=== PATIENT | male | born 1970 ===

== ENCOUNTER 2023-02-28 08:48 | Outpatient (REF) | payer MEDICAID, SELFPAY ==
[2023-02-28 11:52] LABS: Estimated Average Glucose 97 mg/dL
[2023-02-28 12:05] LABS: Alanine Aminotransferase 23 U/L (0-40); Albumin Level 4.3 g/dL (3.5-5.0); Alkaline Phosphatase 69 U/L (39-117); Anion Gap 11 (12-20); Aspartate Amino Transferase 20 U/L (5-37); Bilirubin Total 0.7 mg/dL (0.0-1.0); Blood Urea Nitrogen 14 mg/dL (9-16); Calcium 9.4 mg/dL (8.4-10.2); Carbon Dioxide 28 mmol/L (22-29); Chloride 107 mmol/L (96-108); Cholesterol 235 mg/dL; Estimated Glomerular Filt Rate > 60; Glucose Random 94 mg/dL (60-115); HDL Cholesterol 58 mg/dL; LDL Cholesterol Calculated 157 mg/dl; Potassium 3.9 mmol/L (3.3-5.1); Sodium 142 mmol/L (135-145); Total Protein 7.4 g/dL (6.5-8.0); Triglycerides 104 mg/dL
[2023-02-28 12:09] LABS: Syphilis Screen Nonreactive (Nonreactive)
[2023-02-28 12:11] LABS: ~HepC Num1 0.12 S/CO (0.00-0.79); ~Hepatitis C Antibody Nonreactive (Nonreactive)
[2023-02-28 12:17] LABS: HBS Num1 0.08 mIU/mL (0-7.99); HBsAGNum1 0.34 S/CO (0.00-0.99); HIV AB/AG Nonreactive (Nonreactive); HIV Num 1 0.05 S/CO (0.00-0.99); Hepatitis B Core Antibody Nonreactive (Nonreactive); Hepatitis B Surface Antigen Negative (Negative); ~Hepatitis B Surface Antibody NONREACTIVE (Nonreactive)
== END 2023-02-28 08:49 | disposition home or self-care (01) ==
LOC: HO.HHCL 08:48
PROVIDERS: Visit Provider Nurse Practitioner Primary Care
DX: Z00.00 Encounter for general adult medical examination without abnormal findings (principal); Z11.4 Encounter for screening for human immunodeficiency virus [HIV]; Z13.220 Encounter for screening for lipoid disorders; Z11.3 Encounter for screening for infections with a predominantly sexual mode of transmission
CPT/HCPCS: 36415; 80053; 80061; 83036; 86704; 86706; 86780; 86803; 87340; 87389

== ENCOUNTER 2023-04-26 13:32 | Outpatient (AMB) | payer MEDICAID, SELFPAY ==
--- NOTE | 2023-04-26 13:41 | MHC.OFFVIS ---
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 States his finger is locking for the last 4-5 months. States its has worsen especially when its cold. He is having pain in his ring finger MCP. He is also having numbness and tingling in his left hand for the last 3-4 yrs. No EMG done. States he wears a brace as needed to help with his discomfort. Denies prior treatment or bracing. 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 His chief complaint is of left ring finger locking and catching. He also complains of numbness and tingling in both hands and he also complains of pain in the MCP joint of the left thumb but does not think he gets locking and catching. 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 [place] Physical Exam Vital Signs: BMI result Body Mass Index 25.0 Const General: cooperative, healthy appearing and no acute distress Orientation/consciousness: oriented to person and oriented to place HEENT Head: Yes normocephalic and Yes atraumatic Eyes EOM: EOMs intact bilaterally Resp Effort & Inspection: normal respiratory effort and able to speak in complete sentences Cardio Jugular venous distension: no JVD Skin General skin exam: turgor normal Rashes: no rashes Neuro General: oriented to person and oriented to place Extrem Other: Evaluation of left Upper Extremity: Neuro: Median, ulnar, radial nerves motor and sensory grossly intact. Vascular: Cap refill brisk. ROM: Can bring fingers closed to a fist and back out to extension. He has visible and palpable locking and catching of the left ring finger, with tenderness over the A1 kimberly. He has some mild enlargement of the left thumb MCP joint. The MCP joint is mildly tender to palpation, and the radial and ulnar collateral ligaments appear to be stable. He is not particularly tender over the left thumb A1 kimberly, and I do not see any locking or catching of the left thumb today. Skin: No lacerations or abrasions. General: No eccymosis. No erythema or evidence of infection. Radiographs: None available today Psych Appearance: grossly normal Affect: normal affect Attitude: cooperative Assessment & Plan Assessment & Plan (1) Trigger finger, left ring finger: Code(s): M65.342 - Trigger finger, left ring finger (2) Numbness and tingling in both hands: Code(s): R20.0 - Anesthesia of skin; R20.2 - Paresthesia of skin (3) Pain of left thumb: Code(s): M79.645 - Pain in left finger(s) Plan Assessment and plan: 1. Left ring finger trigger finger I educated him about this condition We discussed operative and non operative treatment options and I am recommending surgery. The risks and benefits of operative treatment were discussed with the patient and the patient wishes to proceed with surgery. These risks include, but are not limited to risk of damage to blood vessels, nerves, tendons, infection, recurrence, incomplete relief of preoperative symptoms, persistent pain, possible need for further surgery and the risks associated with regional blocks and anesthesia. The plan is to take the patient to the operating room sometime in the next few weeks for the following procedures: 1. Left ring finger trigger kimberly release 2. [ ] All of the preoperative paperwork including the consent was filled out today. All the patient's questions were answered. 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 2. Numbness and tingling in both hands I have ordered a nerve conduction study He will follow-up with me after that study, likely at the follow-up for his left thumb pain. 3. Left thumb MCP joint pain without evidence of instability. We will work this up at a later date, and will need pre clinic radiographs three views of the left hand with attention to the thumb. Orders: Orders NE nerve conduction velocity Today R20.0 - Anesthesia of skin, R20.2 - Paresthesia of skin Coding Level of Care Code New Pt Level 4 (99998) Diagnoses Trigger finger, left ring finger M65.342 Numbness and tingling in both hands R20.0; R20.2 Pain of left thumb M79.645
[2023-04-26 13:44] VITALS: BMI 25.0
== END 2023-04-26 14:59 | disposition home or self-care (01) ==
PROVIDERS: Visit Provider Orthopaedic Surgery
DX: M65.342 Trigger finger, left ring finger (principal); R20.0 Anesthesia of skin; R20.2 Paresthesia of skin; M79.645 Pain in left finger(s)
CPT/HCPCS: 99204

== ENCOUNTER → 2023-04-26 13:32 | Outpatient (BNVA) | payer MEDICAID, SELFPAY | PROVIDERS: Visit Provider Orthopaedic Surgery ==

== ENCOUNTER 2023-05-13 12:21 | Outpatient (REF) | payer MEDICAID, SELFPAY | END 2023-05-13 12:22 | disposition home or self-care (01) | LOC: HO.NEURO 12:21 | PROVIDERS: Visit Provider Orthopaedic Surgery | DX: R20.0 Anesthesia of skin (principal); R20.2 Paresthesia of skin | CPT/HCPCS: 95886; 95911 ==

== ENCOUNTER → 2023-05-13 12:24 | Outpatient (BNV) | payer MEDICAID, SELFPAY | PROVIDERS: Visit Provider Physical Medicine & Rehabilitation | DX: G56.23 Lesion of ulnar nerve, bilateral upper limbs (principal) | CPT/HCPCS: 95886; 95911 ==

== ENCOUNTER 2023-06-06 06:47 | Day surgery (SDC) | payer MEDICAID, SELFPAY ==
[2023-06-06 07:18] VITALS: BMI 25.8
--- NOTE | 2023-06-06 08:03 | MHC.SHP ---
Pre-Procedural Eval Section A Date of Service: 06/06/23 The patient is an INPATIENT: No Changes since office visit: No Cold of Flu in the past 2 weeks, No New Medical Problems, No Changes in Medication and No Patient answered all questions The History & Physical has been completed within 30 days and I have reviewed it.: Yes Section B Chief Complaint: Trigger finger, left ring finger Allergies: Allergies Allergy/AdvReac Type Severity Reaction Status Date / Time No Known Allergies Allergy Verified 06/06/23 07:19 [No Known Allergies*] Plan I have reviewed the history and physical and performed a pertinent physical examination on my patient. No changes have occurred unless specified. Time Spent With Patient Time: Total time managing care of this patient today ____ minutes.
--- NOTE | 2023-06-06 08:03 | W.PM.OPN ---
Operative Note Operative Note Date of Service: 06/06/23 Narrative: Operative Note Preop diagnosis: 1. Left ring finger Trigger finger Postop diagnosis: Same Procedure: 1. Left ring finger A1 kimberly release Surgeon: Nila Mchugh MD Anesthesia: local block using 1% lidocaine with epinephrine Findings: No locking or catching after A1 kimberly release EBL: Less than 5 mL Tourniquet time: None Specimens: None Complications: None Disposition: Brought to recovery room in stable condition Plan: Follow-up for 10-14 days for wound check and suture removal Indications: The patient is 52 years old, with a left ring finger trigger finger that has been unresponsive to nonoperative management. The risks and benefits of operative treatment including but not limited to risk of damage to blood vessels, nerves, tendons, infection, persistent pain, persistent symptoms, recurrence or possible need for additional surgery were discussed with the patient and the patient wishes to proceed with surgery. Procedure: Once consent was obtained a local block was performed in the preop area using a combination of 1% lidocaine with epinephrine. The patient was then brought back to the operating suite and placed on the operative table in supine position. The left upper extremity was prepped and draped in a standard surgical fashion. Once assured that we had a good block, a 1.5 cm oblique incision was made centered over the A1 kimberly of the left ring finger . The incision was made through the skin to the subcutaneous tissues using a #15 blade. Careful dissection was made down to the level of the A1 kimberly using tenotomy scissors, with care being taken to protect the nearby neurovascular structures. A longitudinal incision was made in the A1 kimberly 1st using a #15 blade, then using tenotomy scissors under direct visualization. The A1 kimberly was noted to be thickened. Following our A1 kimberly release, we no longer saw any locking or catching of the digit with flexion and extension. Once satisfied with our A1 kimberly release the wound was copiously irrigated with normal saline and hemostasis was obtained with a brief period of local pressure. The skin edges were reapproximated with some 5.0 nylon suture material and a sterile dressing was applied. The patient appears to have tolerated the procedure well and with no complications. All digits were well vascularized at the conclusion of the case.
== END 2023-06-06 09:27 ==
LOC: HO.SSS 06:48
PROVIDERS: Visit Provider Orthopaedic Surgery
PROC: (CPT 26055; principal; 2023-06-06 08:20)
DX: M65.342 Trigger finger, left ring finger (principal); R20.0 Anesthesia of skin; R20.2 Paresthesia of skin; M79.645 Pain in left finger(s)
CPT/HCPCS: 26055; J0171

== ENCOUNTER → 2023-06-06 06:47 | Outpatient (BNV) | payer MEDICAID, SELFPAY | PROVIDERS: Visit Provider Orthopaedic Surgery | DX: M65.342 Trigger finger, left ring finger (principal) | CPT/HCPCS: 26055 ==

== ENCOUNTER 2023-06-22 11:04 | Outpatient (REF) | payer MEDICAID, SELFPAY | END 2023-06-22 11:05 | disposition home or self-care (01) | LOC: HO.HOSX 11:04 | PROVIDERS: Visit Provider Orthopaedic Surgery | DX: G56.21 Lesion of ulnar nerve, right upper limb (principal); M65.342 Trigger finger, left ring finger; R20.0 Anesthesia of skin; R20.2 Paresthesia of skin | CPT/HCPCS: 99212 ==

== ENCOUNTER 2023-06-22 12:09 | Outpatient (AMB) | payer MEDICAID, SELFPAY ==
[2023-06-22 12:31] VITALS: BMI 25.8
--- NOTE | 2023-06-22 12:31 | MHC.OFFVIS ---
Intake Vital Signs 06/22/23 12:31 06/22/23 13:05 Height 5 ft 5 in Weight 155 lb BMI 25.8 25.8 Intake Visit Reasons: PO LT RF Trigger 06/06/2023 Intake Note: Trip 53 yr old male presents today for his p/o visit for his left ring finger DOS 06/06/23. States his finger no longer triggering, however he is having trouble straightening it out. Allergies No Known Allergies [No Known Allergies*] Allergy (Verified 06/22/23 12:55) HPI PO LT RF Trigger 06/06/2023 HPI Details Trip is a 53 year old right hand dominant man who presents S/P left ring finger trigger release, DOS: 06/06/23. He says he is doing well in regards to his trigger finger and no longer has any locking or catching. He does say he is having difficulty and some pain when trying to fully straighten his finger. 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 Sutures removed and Steri-Strips applied He can make a fist and extend all his digits No locking or catching He does have a slight flexion contracture of the ring finger PIP joint that measures perhaps 20 degrees. This is somewhat flexible and with encouragement I was able to get him to get a flat on the table, though he did not like it because it hurt to try to straighten it out. Showed him some exercises and expressed the importance of performing them to avoid a significant flexion contracture. Sensation is intact Cap refill is brisk Psych Appearance: grossly normal Affect: normal affect Attitude: cooperative Assessment & Plan Assessment & Plan (1) Trigger finger, left ring finger: Code(s): M65.342 - Trigger finger, left ring finger (2) Pain of left thumb: Code(s): M79.645 - Pain in left finger(s) (3) Numbness and tingling in both hands: Code(s): R20.0 - Anesthesia of skin; R20.2 - Paresthesia of skin Plan Assessment and plan: 1. Left ring finger trigger finger, S/P release DOS: 06/06/23 The patient appears to be doing well post-operatively I educated him about the post-operative course I explained the signs and symptoms of infection, if the patient develops any new or worsening erythema, drainage, pain, or warmth they should contact the clinic or attend the ED. I discussed activity modifications, he is to lift nothing heavier than a cellphone for the next two weeks He will perform gentle ROM exercises at home, particularly straightening the finger out by placing it flat on the table at least 20 times a day. He should avoid any underwater activities for the next 5 days He should gently massage about the incision site to reduce the risk of hypersensitivity He was given a note restricting him to light duty with a 2lb weight limit for the next 2 weeks. He can return to full duty in 2 weeks. Scribed for Nila Mchugh MD by Julius Chavarria, medical safety director, on 06/22/23 at 1:00 PM, EST. Coding Level of Care Code Global (66157) Diagnoses Trigger finger, left ring finger M65.342 Pain of left thumb M79.645 Numbness and tingling in both hands R20.0; R20.2
--- NOTE | 2023-06-22 13:04 | MHC.OFFVIS ---
Intake Vital Signs 06/22/23 12:31 06/22/23 13:05 Height 5 ft 5 in Weight 155 lb BMI 25.8 25.8 Intake Visit Reasons: PO LT RF Trigger 06/06/2023R Allergies No Known Allergies [No Known Allergies*] Allergy (Verified 06/22/23 12:55) HPI HPI Comments History of Present Illness Details Trip is a 53 year old right hand dominant man who presents to discuss his right thumb pain & for a NCS study review. 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 [place] Review of Systems Const All systems reviewed & are unremarkable except as noted in HPI and below Physical Exam Vital Signs: BMI result Body Mass Index 25.8 Const General: no acute distress and alert Orientation/consciousness: patient oriented x3 Neuro General: patient oriented x3 Extrem Other: Evaluation of Left Upper Extremity: The patient is alert, oriented, and in no acute distress Neuro: Median, Ulnar, Radial nerves motor and sensory intact and sensation is normal to the tips of all digits Vascular: Cap refill brisk ROM: He can bring his thumb, index, middle, and small fingers closed to a fist and back into full extension He has some mild enlargement of the left thumb MCP joint. The MCP joint is mildly tender to palpation, and the radial and ulnar collateral ligaments appear to be stable. He is not particularly tender over the left thumb A1 kimberly, and I do not see any locking or catching of the left thumb today. Nerve Conduction Study: IMPRESSION: 1. This is an abnormal study. 2. There is electrodiagnostic evidence for right ulnar neuropathy, most likely at the elbow. 3. There is no electrodiagnostic evidence for median neuropathy, brachial plexopathy, or cervical radiculopathy. 4. There is no electrodiagnostic evidence for ulnar neuropathy on the left. Thank you for your kind referral. Genesis Sue MD, FANG 05/13/23 Psych Appearance: grossly normal Affect: normal affect Attitude: cooperative Assessment & Plan Assessment & Plan (1) Trigger finger, left ring finger: Code(s): M65.342 - Trigger finger, left ring finger (2) Pain of left thumb: Code(s): M79.645 - Pain in left finger(s) (3) Cubital tunnel syndrome on right: Code(s): G56.21 - Lesion of ulnar nerve, right upper limb (4) Numbness and tingling in both hands: Code(s): R20.0 - Anesthesia of skin; R20.2 - Paresthesia of skin Plan Assessment and plan: 1. Right Cubital tunnel syndrome Symptoms intermittent and occasional I educated him about this condition If his symptoms persist or worsen he can follow up to discuss treatment options Otherwise he will follow up prn 3. Left thumb MCP joint pain without evidence of instability Discussed activity modification, he should limit or avoid any activities which cause him pain, including repetitive motions 4. Left ring finger trigger finger, S/P release DOS: 06/06/23 Scribed for Nila Mchugh MD by Julius Chavarria, biomedical engineering director, on 06/22/23 at 1:00 PM, EST. Coding Diagnoses Trigger finger, left ring finger M65.342 Pain of left thumb M79.645 Cubital tunnel syndrome on right G56.21 Numbness and tingling in both hands R20.0; R20.2
[2023-06-22 13:05] VITALS: BMI 25.8
== END 2023-06-22 13:16 | disposition home or self-care (01) ==
PROVIDERS: Visit Provider Orthopaedic Surgery
DX: M65.342 Trigger finger, left ring finger (principal); M79.645 Pain in left finger(s); R20.0 Anesthesia of skin; R20.2 Paresthesia of skin
CPT/HCPCS: 99024

== ENCOUNTER 2023-06-22 12:38 | Outpatient (AMB) | payer MEDICAID, SELFPAY ==
[2023-06-22 12:49] VITALS: BMI 25.8
--- NOTE | 2023-06-22 12:49 | A.OFFVIS_ITS ---
Intake Vital Signs 06/22/23 12:49 Height 5 ft 5 in Weight 155 lb BMI 25.8 Intake Visit Reasons: New Prob- Lt thumb OA Pain Intake Note: Trip 53 yr old male presents today for a new problem visit for his left thumb pain. States his pain is mainly on his joint. States pain started about 4-5 years ago no injury he can recall. States he feels like is thumb locks. Also has spasms and limited his ROM. He has to massage the area to make his finger feel better. States he had an EMG done. Allergies No Known Allergies [No Known Allergies*] Allergy (Verified 06/22/23 12:55) HPI New Prob- Lt thumb OA Pain HPI Details Trip is a 53 year old right hand dominant man who presents to discuss his left thumb pain & for a NCS study review. He complains of numbness and tingling to the tips of his fingers, primarily the thumb, index and middle fingers of his right hand. He denies any numbness or tingling in the right small finger. He also complains of pain and spasms in the thenar mass aspect of his left thumb. He says this happens periodically and with activities. He denies any locking or catching of his thumb. 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 [place] Review of Systems Const All systems reviewed & are unremarkable except as noted in HPI and below Physical Exam Vital Signs: BMI result Body Mass Index 25.8 Const General: no acute distress and alert Orientation/consciousness: patient oriented x3 Neuro General: patient oriented x3 Extrem Other: Evaluation of Left Upper Extremity: The patient is alert, oriented, and in no acute distress Neuro: Median, Ulnar, Radial nerves motor and sensory intact and sensation is normal to the tips of all digits today in clinic No thenar or intrinsic wasting He reports occasionally getting intermittent numbness in the median nerve distribution. He denies ever having any numbness in the small finger. Vascular: Cap refill brisk ROM: He is not particularly tender over the left thumb A1 kimberly, and I do not see any locking or catching of the left thumb today. No tenderness about the basal joint Negative CMC grind Not particularly tender over the thenar mass today in clinic, but he says this is where he will get spasms and feel pain. He has good active flexion and extension of the thumb and circumduction of the thumb without pain. Nerve Conduction Study: IMPRESSION: 1. This is an abnormal study. 2. There is electrodiagnostic evidence for right ulnar neuropathy, most likely at the elbow. 3. There is no electrodiagnostic evidence for median neuropathy, brachial plexopathy, or cervical radiculopathy. 4. There is no electrodiagnostic evidence for ulnar neuropathy on the left. Thank you for your kind referral. Genesis Sue MD, FANG 05/13/23 Psych Appearance: grossly normal Affect: normal affect Attitude: cooperative Assessment & Plan Assessment & Plan (1) Cubital tunnel syndrome on right: Code(s): G56.21 - Lesion of ulnar nerve, right upper limb (2) Pain of left thumb: Code(s): M79.645 - Pain in left finger(s) Plan Assessment & Plan: 1. Left thumb pain, in the area of the thenar mass Intermittent and not daily No triggering No pain about the CMC joint I educate him about both of these things and let him know that either one of th kathy things can cause pain in the thenar mass in case he should develop them. He also had no tenderness in the thenar mass today, so we talked about the fact that he could be getting muscle spasms and this area, in which case he needs to be a little bit more mindful about maybe not overdoing repetitive gripping type activities which might cause spasms in his hand. No indications for injections or operative treatment at this time 2. Right Cubital tunnel syndrome Asymptomatic at this time, no problems with numbness in the small and ring fingers. He notes that he occasionally has numbness to the tips of the thumb, index, and middle fingers NCS negative for median neuropathy Follow-up p.r.n. Scribed for iNla Mchugh MD by Julius Chavarria, caregivers non medical, on 06/22/23 at 1:35 PM, EST. Orders: Orders XR hand LT min 3V Today M79.642 - Pain in left hand Coding Level of Care Code Est Pt Level 3 (99565) Diagnoses Cubital tunnel syndrome on right G56.21 Pain of left thumb M79.645
== END 2023-06-22 13:16 | disposition home or self-care (01) ==
PROVIDERS: Visit Provider Orthopaedic Surgery
DX: G56.21 Lesion of ulnar nerve, right upper limb (principal); M79.645 Pain in left finger(s)
CPT/HCPCS: 99213

== ENCOUNTER 2024-06-14 10:33 | Outpatient (REF) | payer MEDICAID, SELFPAY ==
[2024-06-14 12:02] LABS: Alanine Aminotransferase 31 U/L (0-40); Albumin Level 4.3 g/dL (3.5-5.0); Alkaline Phosphatase 72 U/L (39-117); Anion Gap 12 (12-20); Aspartate Amino Transferase 26 U/L (5-37); Bilirubin Total 0.5 mg/dL (0.0-1.0); Blood Urea Nitrogen 11 mg/dL (9-16); Calcium 9.5 mg/dL (8.4-10.2); Carbon Dioxide 27 mmol/L (22-29); Chloride 105 mmol/L (96-108); Cholesterol 230 mg/dL (<200); Estimated Glomerular Filt Rate > 60; Glucose Random 104 mg/dL (60-115); HDL Cholesterol 64 mg/dL (>40); LDL Cholesterol Calculated 152 mg/dL (<100); Potassium 4.2 mmol/L (3.3-5.1); Sodium 140 mmol/L (135-145); Total Protein 7.3 g/dL (6.5-8.0); Triglycerides 74 mg/dL (<150)
[2024-06-14 12:20] LABS: TSH reflex Free T4 0.35 uIU/mL (0.32-4.0)
== END 2024-06-14 10:34 | disposition home or self-care (01) ==
LOC: HO.HHCL 10:33
PROVIDERS: Visit Provider Nurse Practitioner Primary Care
DX: Z00.00 Encounter for general adult medical examination without abnormal findings (principal); F41.1 Generalized anxiety disorder
CPT/HCPCS: 36415; 80053; 80061; 84443

== ENCOUNTER 2024-07-11 14:24 | Outpatient (AMB) | payer MEDICAID, SELFPAY ==
[2024-07-11 14:38] VITALS: BMI 23.4
--- NOTE | 2024-07-11 14:38 | MHC.OFFVIS ---
Vital Signs 07/11/24 14:38 Height 5 ft 6 in Weight 145 lb BMI 23.4 Intake Visit Reasons: OV: B/L hand pain, EMG done on 05/13/23 Intake Note: Trip is a 54 year old right hand dominant male who presents today for a follow up visit of his bilateral hand pain, left is worse. EMG done on 05/15/2023. 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 Has tried braces. Hx of Left ring finger A1 kimberly release DOS: 06/06/2023 w/ Dr Mchugh. Party Plan Dealer Required: Yes Party Plan Dealer Language: Hospital Carrier Services: Party Plan Dealer Present Party Plan Dealer Name: Darrel ([id number]) Allergies No Known Allergies [No Known Allergies*] Allergy (Verified 07/11/24 14:42) HPI HPI OV: B/L hand pain, EMG done on 05/13/23: Details: Patient is a 54-year-old male who presents for evaluation of bilateral hand pain, numbness, tingling, with EMG previously performed on 05/13/2023. Patient states that his previous EMG only showed cubital tunnel on the right, but the patient states that he is experiencing bilateral hand pain, numbness, and tingling in all digits of the left hand and the median nerve distribution of the right hand. Patient states he is interested in getting a repeat EMG. Patient states that this pain frequently keeps him from sleeping, and is much worse at night. Patient states that his numbness is almost all the time, daily, and worse at night. No other acute complaints or concerns at this time. 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 He denies ever having any numbness in the small finger. Vascular: Cap refill brisk ROM: Patient is able to flex and extend all digits of bilateral hands fully, but reports some slight discomfort when doing so in all joints of bilateral fingers Nerve Conduction Study: IMPRESSION: 1. This is an abnormal study. 2. There is electrodiagnostic evidence for right ulnar neuropathy, most likely at the elbow. 3. There is no electrodiagnostic evidence for median neuropathy, brachial plexopathy, or cervical radiculopathy. 4. There is no electrodiagnostic evidence for ulnar neuropathy on the left. Thank you for your kind referral. Genesis Sue MD, FANG 05/13/23 Psych Appearance: grossly normal Affect: normal affect Attitude: cooperative Assessment & Plan Assessment & Plan (1) Bilateral hand pain: Code(s): M79.641 - Pain in right hand; M79.642 - Pain in left hand Category: Medical (2) Numbness and tingling in both hands: Code(s): R20.0 - Anesthesia of skin; R20.2 - Paresthesia of skin Category: Medical (3) Cubital tunnel syndrome on right: Code(s): G56.21 - Lesion of ulnar nerve, right upper limb Category: Medical Plan 1. Cubital tunnel syndrome, right, asymptomatic 2. Numbness and tingling bilateral hands with the EMG negative for everything other than cubital tunnel syndrome on the right At this time, patient was referred for repeat EMG and nerve conduction study to assess the health of the nerves of bilateral upper extremities Patient will follow-up after EMG and nerve conduction study for results review and discussion of further treatment options if indicated Patient is also provided with bilateral Velcro wrist splints to be worn at night to see if this will help his nighttime symptoms Patient was amenable to this plan 3. Pain and stiffness of bilateral hands Patient reports previous diagnosis of arthritis Patient was referred to occupational therapy for range of motion and strengthening of bilateral hands Patient was amenable to this plan Patient will follow-up after EMG and nerve conduction study for results review, sooner any acute concerns Orders: Orders NE electromyogram (EMG) 07/11/24 R20.0 - Anesthesia of skin, R20.2 - Paresthesia of skin NE nerve conduction velocity 07/11/24 R20.0 - Anesthesia of skin, R20.2 - Paresthesia of skin OT Evaluation and Treatment 07/11/24 M79.641 - Pain in right hand, M79.642 - Pain in left hand Coding Level of Care Code Est Pt Level 3 (46862) Diagnoses Bilateral hand pain M79.641; M79.642 Numbness and tingling in both hands R20.0; R20.2 Cubital tunnel syndrome on right G56.21
== END 2024-07-11 15:07 | disposition home or self-care (01) ==
DX: M79.641 Pain in right hand (principal); M79.642 Pain in left hand; R20.0 Anesthesia of skin; R20.2 Paresthesia of skin; G56.21 Lesion of ulnar nerve, right upper limb
CPT/HCPCS: 99213

== ENCOUNTER → 2024-07-11 14:24 | Outpatient (BNVA) | payer MEDICAID, SELFPAY | DX: M79.641 Pain in right hand (principal); M79.642 Pain in left hand; R20.0 Anesthesia of skin; R20.2 Paresthesia of skin; G56.21 Lesion of ulnar nerve, right upper limb | CPT/HCPCS: 99212 ==

== ENCOUNTER 2024-08-17 13:19 | Outpatient (REF) | payer MEDICAID, SELFPAY ==
--- NOTE | 2024-08-17 13:22 | EMG_ITS ---
Chief complaint: Bilateral hand pain Comparison: EMG done by nc 05/13/2023 Reason for referral: Evaluate for Carpal Tunnel Syndrome or ulnar neuropathy Referred by: Sebastian OKEEFE Procedure done: Bilateral upper extremities NCS/EMG Precautions and/or limitations: None The limb temperature was monitored continuously and remained between 32-36 degrees C during the performance of the NCS. Ulnar motor NCS was performed with moderate elbow flexion between 70-90 degrees, with across-elbow distance of 10 cm. Nerve Conduction Studies Anti Sensory Summary Table ?Stim Site NR Onset (ms) Norm Onset (ms) Peak (ms) Norm Peak (ms) O-P Amp (?V) Norm O-P Amp Site1 Site2 Delta-0 (ms) Dist (cm) Rojelio (m/s) Norm Rojelio (m/s) Left Median Anti Sensory (2nd Digit) Wrist ? 2.6 3.2 <3.6 29.7 >10 Wrist 2nd Digit 2.6 14.0 54 Right Median Anti Sensory (2nd Digit) Wrist ? 2.4 3.1 <3.6 28.6 >10 Wrist 2nd Digit 2.4 14.0 58 Right Radial Anti Sensory (Thumb) Forearm ? 1.6 2.3 <3.1 28.7 Forearm Thumb 1.6 0.0 Left Ulnar Anti Sensory (5th Digit) Wrist ? 0.5 3.0 <3.7 17.2 >15.0 Wrist 5th Digit 0.5 14.0 280 Right Ulnar Anti Sensory (5th Digit) Wrist ? 2.5 3.1 <3.7 19.5 >15.0 Wrist 5th Digit 2.5 14.0 56 Motor Summary Table ?Stim Site NR Onset (ms) Norm Onset (ms) O-P Amp (mV) Norm O-P Amp iAmp (mV) Amp (1st) (%) Site1 Site2 Delta-0 (ms) Dist (cm) Rojelio (m/s) Norm Rojelio (m/s) Left Median Motor (Abd Poll Brev) Wrist ? 3.2 <3.9 6.5 >4.5 7.3 100.0 Elbow Wrist 4.1 21.5 52 >45 Elbow ? 7.3 5.8 6.6 89.2 Right Median Motor (Abd Poll Brev) Wrist ? 3.4 <3.9 4.6 >4.5 5.7 100.0 Elbow Wrist 3.9 21.5 55 >45 Elbow ? 7.3 4.1 5.5 89.1 Left Ulnar Motor (Abd Dig Minimi) Wrist ? 2.6 <3.0 5.0 >5 6.1 100.0 B Elbow Wrist 3.5 19.0 54 >45 B Elbow ? 6.1 4.3 5.5 86.0 A Elbow B Elbow 1.5 110.0 733 >45 A Elbow ? 7.6 4.9 6.2 98.0 Right Ulnar Motor (Abd Dig Minimi) Wrist ? 2.5 <3.0 6.5 >5 7.8 100.0 B Elbow Wrist 3.4 20.5 60 >45 B Elbow ? 5.9 6.0 7.4 92.3 A Elbow B Elbow 1.3 10.0 77 >45 A Elbow ? 7.2 5.9 7.2 90.8 EMG ?Side Muscle Nerve Root Ins Act Fibs Psw Amp Dur Poly Recrt Int Pat Comment Right 1stDorInt Ulnar C8-T1 Nml Nml Nml Nml Nml 0 Nml Complete Right FlexCarRad Median C6-7 Nml Nml Nml Nml Nml 0 Nml Complete Right Biceps Musculocut C5-6 Nml Nml Nml Nml Nml 0 Nml Complete Right Triceps Radial C6-7-8 Nml Nml Nml Nml Nml 0 Nml Complete Right Deltoid Axillary C5-6 Nml Nml Nml Nml Nml 0 Nml Complete Left 1stDorInt Ulnar C8-T1 Nml Nml Nml Nml Nml 0 Nml Complete Left FlexCarRad Median C6-7 Nml Nml Nml Nml Nml 0 Nml Complete Left Biceps Musculocut C5-6 Nml Nml Nml Nml Nml 0 Nml Complete Left Triceps Radial C6-7-8 Nml Nml Nml Nml Nml 0 Nml Complete Left Deltoid Axillary C5-6 Nml Nml Nml Nml Nml 0 Nml Complete FINDINGS: All motor and sensory nerves tested showed normal latencies, amplitudes and conduction velocities. Concentric needle EMG was performed in selected muscles of the bilateral upper extremities. Study did not reveal signs of electric abnormalities as shown in the table above. IMPRESSION: 1. This is a normal study. 2. There is no electrodiagnostic evidence for median neuropathy, ulnar neuropathy, brachial plexopathy, or cervical radiculopathy. CLINICAL COMMENT: No signs of ulnar neuropathy on today's study. Thank you for your kind referral. Genesis Sue MD, FANG Board Certified, [place] Board [employer] and Rehabilitation (ABPMR) Board Certified, [place] Board of Electrodiagnostic Medicine (ABEM) CODIN [phone] MTDD
== END 2024-08-17 13:20 | disposition home or self-care (01) ==
LOC: HO.NEURO 13:19
PROVIDERS: PCP Nurse Practitioner Primary Care
DX: R20.0 Anesthesia of skin (principal); R20.2 Paresthesia of skin
CPT/HCPCS: 95886; 95911

== ENCOUNTER → 2024-08-17 13:22 | Outpatient (BNV) | payer MEDICAID, SELFPAY | PROVIDERS: PCP Nurse Practitioner Primary Care; Visit Provider Physical Medicine & Rehabilitation | DX: M79.641 Pain in right hand (principal); M79.642 Pain in left hand | CPT/HCPCS: 95886; 95911 ==

== ENCOUNTER 2024-08-21 14:32 | Outpatient (RCR) | payer MEDICAID, SELFPAY ==
--- NOTE | 2024-07-26 15:03 | MHC.OT.EP ---
[address] [phone] Occupational Therapy Plan of Care Patient Name: Trip Kramer Date of Evaluation: 07/26/24 Diagnosis: B/L hand Pain Pain Location: Constant sharp pain/ache in hands Also reports pain in back Pain Score: 9 Pain Scale Used: Numeric (0 - 10) Aggravating Factors: Gripping, heavy use, cold weather Alleviating Factors: Tylenol (no significant relief), some relief w/ warm water Assessment: 54 yo male presents w/ B/L hand pain, reported over several years. 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 He is referred now with bilateral hand pain through digits, into elbow and back at times, with numbness and tingling through the hands and tightness constantly. On assessment today, he reports high resting pain, primarily in left upper back, but high also in both hands through IPs. He has equal sensation (3.61) and gross grasp (60lb), Upper extremity and hand range is grossly normal, tightness noted through hands with hook fist due to pain stiffness and intrinsic tightness. No changes with Tinel's to carpal tunnel, cubital tunnel or Guyon's canal B/L'ly, also (-) Phalen's B/L'ly, pain seems consistent w/ arthritic changes and general overuse of hands through work and daily activities. We will continue OT services to address range, strengthening, modifications and overall pain management techniques. Frequency and Duration: The patient will be seen 2x/wk for 4 weeks Short Term Goals: Ind w/ HEP Ind w/ use of heat modalities for comfort and warm-up Pt to demo good understanding of modifications for gripping to reduce strain Care Home Goals: Pt to demo ease w/ hook fist into full range B/L gross grasp >80lb QuickDASH score <50 pts Treatment Plan: Therapeutic Exercise Therapeutic Activity Home Exercise Program Patient Education Edema Control ADL Training Paraffin Fluidotherapy MHP Joint Mobilization Soft Tissue Mobilization Kinesiotaping Electronically Signed By: Maria Fernanda Zee, OTR/L CHT Please Sign and return to therapist. Thank you once again for your referral.
--- NOTE | 2024-08-23 11:39 | MHC.OT.DC ---
[address] [phone] F: [phone] Occupational Therapy Discharge Note Patient Name: Trip Kramer Provider: Sebastian Wang PA-C Diagnosis: B/L hand Pain Date of Evaluation: 07/26/24 Date of Discharge: 08/23/24 Treatments to Date: 4 Discharge Status: Independent with HEP Insurance Declined Tx Discharge Summary: Trip was referred to OT w/ B/L hand pain due to OA. He has low pain in hands when not working, but as soon as returns to work, has higher pain through hands. Overall good range w/ some intrinsic tightness w/ hook. Ind w/ HEP and has increased ease w/ movement, but no specific gains made with pain relief through therapy. He has been educated on joint protection, activity modification and HEP for OA, at this time we will d/c to self management of chronic condition. Electronically Signed By: Maria Fernanda Zee, OTR/L CHT Reviewed/agree with student documentation: Therapist: Please Sign and return to therapist, thank you for your referral.
== END 2024-08-23 11:40 | disposition home or self-care (01) ==
LOC: HO.OT 14:32
PROVIDERS: PCP Nurse Practitioner Primary Care
DX: M79.641 Pain in right hand (principal); M79.642 Pain in left hand
CPT/HCPCS: 97110; 97140; 97165

== ENCOUNTER → 2024-09-11 20:30 | Outpatient (REF) | payer MEDICAID, SELFPAY ==
--- OUTSIDE RECORDS SUMMARY | 2024-09-11 21:04 | XMS_ITS | Clinical Summary ---
Author Organization [employer] Address [address] [facility] [address] [place] [address] Care Team Providers Care Orientation & Mobility Specialist Name Role Phone Torie Dowling Primary Care Provider [phone] Allergies No known active allergies Medications * This document contains information received from the source organization and may not represent a complete record from that organization. Blood Pressure kitIndications:El evated blood pressure reading without diagnosis of hypertension 1 kit in the morning. 1 kit 3 Active olmesartan (Benicar) 20 MG tabletIndications :Benign essential HTN Take 1 tablet (20 mg) by mouth Once per day. 90 tablet 1 4 Active dextran 70-hypromellose (artificial tears) 0.1-0.3 % ophthalmic solutionIndicatio ns:Dry eyes Administer 1 drop into both eyes if needed in the morning, at noon, and at bedtime for dry eyes. 15 mL 3 4 05/04/20 25 Active QUEtiapine (SEROquel) 50 MG tablet Take 50 mg by mouth at bedtime. 4 Active PARoxetine (Paxil) 30 MG tablet Take 60 mg by mouth Once daily. 4 Active Active Problems Problem Noted Date Diagnosed Date Benign essential HTN 01/27/2024 Screening for colon cancer 11/02/2023 Overview (11/02/2023): Cologuard negative 03/2023 JERRELL (generalized anxiety disorder) 11/02/2023 Assessment & Plan (11/04/2023 2:28 PM EDT): During IBH Consult Trip presenting with excessive worry/anxiety, difficulty controlling worry, restless/keyed up/On edge, easily fatigued, difficulty concentrating/Mind going blank , irritability, muscle tension, and sleep disturbance difficulty falling asleep and palpitations, sweating, sensation of shortness of breath/smothering, Chest pain/discomfort, dizzy/unsteady/light-headed/faint, numbness/tingling, fear of losing control; for a period of 18+ mo, for all symptoms in the context of divorce/separation, illness or family illness, and relationship issues. Trip have been experiencing panic attacks due to dealing with many stressors. Difficulty to manage symptoms. Interpersonal relationship reported as vulnerable due to lack of communication with loved ones. PLAN: (check all that apply) New/Additional Services needed PCP management On-site non-integrated services . Provided number for [facility] for sooner and same-day appointments. Referral for OP individual therapy will be placed. clinician will see patient for a follow-up. 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 Encounters Date Type Department Care Team Description 08/21/2024 Telephone [facility] [address] [place] [address] Jayro Wood [place] October recall 08/03/2024 2:15 PM EST Office Visit [facility] [address] [place] [address] Torie Dowling ANP Apneic episode (Primary Dx); Snoring; Daytime somnolence; Elevated cholesterol; Benign essential HTN 08/03/2024 Travel from Last 3 Months Immunizations Name Administration Dates Next Due Hep B, adult 11/02/2023 Influenza Injectable Quadriv alant Preservative Free IIV4 MDCK 06/15/2023 Influenza, seasonal, injectable, preservative fr ee 04/30/2024 Pfizer Covid-19 Vaccine 12+ 04/30/2024 Tdap 04/29/2020 Zoster, Recombinant 08/18/2023,06/15/2023 Social History Tobacco Use Types Packs/Day Years Used Date Smoking Tobacco: Former Cigarettes Passive Smoke Exposure: Past Smokeless Tobacco: Never Alcohol Use Standard Drinks/Week Comments Yes 0 (1 standard drink = 0.6 oz pur e alcohol) Alcohol Answer Date Recorded How often do you have a drink containing alcohol ? 2 08/03/2024 How many drinks containing a lcohol do you have on a typical day when you are drinking? 2 08/03/2024 Frequency of Binge Drinking Not on file 07/09 Depression Answer Date Recorded Patient Health Questionnaire-9 Score 15 08/03/2024 Patient Health Questionnaire-9 Score 15 08/03/2024 Last PHQ-9: Questionnaire Data Not on file 1 10/04/2023 Housing Stability Answer Date Recorded What is your housing situation today? I have brad salazar 05/16/[address] you li ve. Do you have problems with any of the following? Pests such as bugs, ants, or mice 05/16/2023 Food Insecurity Answer Date Recorded Within the past 12 months, y ou worried that your food would run out before you got money to buy more: Often true 06/06/2023 Within the past 12 months,th e food you bought just didn't last and you didn't have enough money to get more: Often true Transportation Answer Date Recorded In the past 12 months, has l ack of transportation kept you from medical appts, meetings, work or from getting things needed for daily living? No 06/06/2023 Utilities Answer Date Recorded In the past 12 months, has t he electric, gas, oil or water company threatened to shut off services in your home? No 06/06/2023 Depression Answer Date Recorded Patient Health Questionnaire-2 Score 5 08/03/2024 Sex and Gender Information Value Date Recorded Sex Assigned at Male 12/27/2022 4:29 PM EDT Legal Sex Male 4:07 PM EDT Gender Identity Male 12/27/2022 4:29 PM EDT Sexual Orientation Don't know 12/27/2022 4: 29 PM EDT Last Filed Vital Signs Vital Sign Reading Time Taken Comments Blood Pressure 130/88 08/03/2024 3:26 PM EST Pulse 90 08/03/2024 2:27 PM EST Temperature 37.1 ??C (98.8 ??F) 08/03/2024 2:27 PM ES T Respiratory Rate 14 08/03/2024 2:27 PM EST Oxygen Saturation 98% 08/03/2024 2:27 PM EST Inhaled Oxygen Concentration - - Weight 73 kg (161 lb) 08/03/2024 2:27 PM EST Height 165.1 cm (5' 5 ) 04/30/2024 3:44 PM EDT Body Mass Index 26.79 04/30/2024 3:44 PM EDT Plan of Treatment Upcoming Encounters Date Type Department Care Team (Late st Contact Info) Description 11/02/2024 1:30 PM EDT Office Visit [facility] [address], [place] [phone] Torie Dowling, LEENA [address] [place] [address] Health Maintenance Due Date Last Done Comments CT Colonography 1969 FIT DNA/Cologuard 1969 FIT 1969 FOBT 1969 Sigmoidoscopy 1969 Pneumococcal Vaccine: 50+ Years (1 of 1 - PCV) 2019 Hepatitis B Vaccines (2 of 3 - 19+ 3-dose series) 11/30/2023 11/02/2023 SDOH Screening 10/24/2024 10/25/2023 Depression Monitoring (PHQ-9) 02/01/2025 08/03/2024, 08/03/2024 Alcohol/Substance Use Screening 08/03/2025 08/03/2024 Depression Screening 08/03/2025 08/03/2024, 08/03/20 Tobacco Screening 08/03/2025 08/03/2024 Colonoscopy 03/09/2026 Colorectal Cancer Screening 03/09/2026 Lipid Panel 06/14/2029 06/14/2024, 02/28/2023 DTaP/Tdap/Td Vaccines (2 - Td or Tdap) 04/29/2030 04/29/2020 RSV Patients and Patients Aged 60 years or older (1 - 1-dose 75+ series) 2044 HIV Screening Completed 02/28/2023 Hepatitis C Screening Completed 02/28/2023 Zoster Vaccines Completed 08/18/2023, 06/15/2023 COVID-19 Vaccine Completed 04/30/2024, , 12/17/2020, Additional history exists Influenza Vaccine Completed 04/30/2024, 06/15/2023 HIB Vaccines Aged Out No longer eligi ble based on patient's age to complete this topic HPV Vaccines Aged Out No longer eligi ble based on patient's age to complete this topic Hepatitis A Vaccines Aged Out No long er eligible based on patient's age to complete this topic IPV Vaccines Aged Out No longer eligi ble based on patient's age to complete this topic Meningococcal Vaccine Aged Out No marcus james eligible based on patient's age to complete this topic RSV under 20 months Aged Out No longe r eligible based on patient's age to complete this topic Rotavirus Vaccines Aged Out No longer eligible based on patient's age to complete this topic Procedures Procedure Name Priority Date/Time Associated Diagnosis Comments COMPREHENSIVE METABOLIC PANEL Routine 06/14/2024 10:37 AM EST Healthcare maintenance LIPID PANEL, STANDARD Routine 06/14/2024 10:37 AM EST Healthcare maintenance TSH W/REFLEX TO FT4 Routine 06/14/2024 1 0:37 AM EST JERRELL (generalized anxiety disorder) HEPATITIS C ANTIBODY REFLEX Routine 02/28/2023 8:53 AM EDT HIV ANTIBODY/ANTIGEN ([place] [facility]) Routine 02/28/2023 8:53 AM EDT from Last 3 Months or Most Recently Relevant to Health Maintenance Results * TSH W/Reflex to FT4 (06/14/2024 10:37 AM EST) TSH reflex Free T4 0.35 0.32 - 4.0 uIU/mL [facility] Blood Venous blood specimen / Unknown 06/14/2024 10:37 AM EST 06/14/2024 11:30 AM EST [facility] LAB BLOOD ORDERABLES Final Resul t [facility] [address] [place] [phone] * (ABNORMAL) Lipid Panel, Standard (06/14/2024 10:37 AM EST) Triglycerides 74 <150 mg/dL [facility] Comment:Desirable Triglyceri de: less than 150 mg/dLBorderline High Triglyceride 150-199 mg/dLHigh Triglyceride: 200-499 mg/dLVery High Triglyceride: greater than or equal to 5OO mg/dL Cholesterol 230(H) <200 mg/dL [facility] Comment:Desirable Cholestero l: less than 200 mg/dLBorderline High Cholesterol: 200-239 mg/dLHigh Cholesterol: greater than 239 mg/dL LDL Cholesterol Calculated 152(H) <100 mg/dL [facility] Comment:Desirable LDL: less than 100 mg/dLNear Optimal/Above Optimal LDL: 110- 129 mg/dLBorderline High LDL: 130-159 mg/dLHigh LDL: 160-189 mg/dLVery High LDL: greater than or equal to 190 mg/dL HDL Cholesterol 64 >40 mg/dL [facility] Comment:Desirable HDL: great er than 40 mg/dL Note: This HDL assay may give artificially low results in patients with liver disease. Blood Venous blood specimen / Unknown 06/14/2024 10:37 AM EST 06/14/2024 11:30 AM EST Torie Dowling [facility] LAB BLOOD ORDERABLES Final Resul t [facility] [address] [place] [phone] * Comprehensive Metabolic Panel (06/14/2024 10:37 AM EST) Sodium 140 135 - 145 mmol/L [facility] Potassium 4.2 3.3 - 5.1 mmol/L [facility] Chloride 105 96 - 108 mmol/L [facility] Carbon Dioxide 27 22 - 29 mmol/L [facility] Anion Gap 12 12 - 20 [facility] Urea Nitrogen (BUN) 11 9 - 16 mg/dL [facility] Creatinine, Serum 0.68 0.5 - 1.4 mg/dL [facility] Estimated Glomerular Filt Rate >60 [facility] Comment:NOTE: For -Am erican individuals, multiply the result by 1.210.Chronic Kidney Disease: Estimated GFR < 60 mL/min/1.39k0Pokigj Kidney Disease: Estimated GFR < 15 mL/min/1.73m2 Glucose 104 60 - 115 mg/dL [facility] Calcium 9.5 8.4 - 10.2 mg/dL [facility] Bilirubin, Total 0.5 0.0 - 1.0 mg/dL [facility] Aspartate Amino Transferase 26 5 - 37 U/L [facility] Alanine Aminotransferase 31 0 - 40 U/L [facility] Total Protein 7.3 6.5 - 8.0 g/dL [facility] Albumin Level 4.3 3.5 - 5.0 g/dL [facility] Alkaline Phosphatase 72 39 - 117 U/L [facility] Blood Venous blood specimen / Unknown 06/14/2024 10:37 AM EST 06/14/2024 11:30 AM EST Torie [facility] LAB BLOOD ORDERABLES Final Resul t Performing Organization Address [facility] de Phone Number [facility] [address] [place] [phone] * Hepatitis C Antibody Reflex (02/28/2023 8:53 AM EDT) Hepatitis C Antibody Nonreactive Nonreactive [facility] Comment:Antibodies to HCV no t detected; does not exclude early acuteHCV infection. 02/28/2023 8:53 AM EDT 02/28/2023 11:26 AM EDT Torie Dowling [facility] LAB BLOOD ORDERABLES Final Resul t Performing Organization Address [facility] Co de Phone Number [facility] [address] [place] [phone] * HIV Ab/Ag (CARMEN BOX) (02/28/2023 8:53 AM EDT) HIV AB/AG Nonreactive Nonreactive [facility] Comment:HIV-1 p24 Ag and/or HIV-1/HIV-2 Ab not detected.A test result that is nonreactive does not exclude thepossibility of exposure to or infection with HIV-1 and/orHIV-2. Nonreactive results in this assay for individualswith prior exposure to HIV-1 and/or HIV-2 may be due toantigen and antibody levels that are below the limit ofdetection of this assay.The [employer] Supervisor HIV Ag/Ab Combo assay result andsupplemental assay results should be interpreted inconjunction with the patient's clinical presentation,history and other laboratory results. If the results areinconsistent with clinical evidence, additional testing issuggested to confirm the result. 02/28/2023 8:53 AM EDT 02/28/2023 11:26 AM EDT [facility] LAB BLOOD ORDERABLES Final Resul t [facility] [address] [place] [phone] from Last 3 Months or Most Recently Relevant to Health Maintenance Insurance [facility] C3 HSN FULL Care Teams Orientation & Mobility Specialist Relationship Specialty Start Date End Date Torie Dowling ANP [address] [place] [phone] PCP - General Family Medicine 03/15/23
--- OUTSIDE RECORDS SUMMARY | 2024-09-11 21:04 | XMS_ITS | Encounter Summary ---
Author Organization [employer] Address [address] [place] [address] [address] [place] [address] Care Team Providers Care Business Account Specialist Name Role Phone Xena Troy MD Primary Care Pro vider Xena Troy MD Primary Care Pro vider Torie Dowling Primary Care Provider [phone] Reason for Visit * Reason Onset Date Comments New Patient Appt 12/27/2022 Encounter Details Date Type Department Care Team (Late st Contact Info) Description 12/27/[address] [facility] [address] [place] [address] [phone] Xena Troy MD [address] [place], [place] [phone] New Patient Appt Social History Tobacco Use Types Packs/Day Years Used Date Smoking Tobacco: Never Assessed Sex and Gender Information Value Date Recorded Sex Assigned at Male 12/27/2022 4:29 PM EDT Legal Sex Male 4:07 PM EDT Gender Identity Male 12/27/2022 4:29 PM EDT Sexual Orientation Don't know 12/27/2022 4 :29 PM EDT documented as of this encounter Miscellaneous Notes * Telephone Encounter - Rocio Vega - 12/27/2022 4:31 PM EDT PAR Rocio Jarrell called pt to Offer [employer] appt. Pt demographics and insurance information were verified. Pt reports previous care at Pt reports no medical conditions. Pt is not taking any medication at this time. Pt given [employer] appt with on 02/09/[address] Xena Valadez @ 9:15 am.Pt will be sent appt reminder card and medical release form and agrees to complete and to return tomedical records prior to [employer]GER appt. documented in this encounter Plan of Treatment Upcoming Encounters Date Type Department Care Team (Late st Contact Info) Description 11/02/2024 1:30 PM EDT Office Visit [facility] [address] [place] [address] Torie Dowling ANP [address] [place] [address] documented as of this encounter Visit Diagnoses Not on filedocumented in this encounter Care Teams Business Account Specialist Relationship Specialty Start Date End Date Xena Troy MD [address] [place] [address] [phone] PCP - General Internal Medicine 12/27/22 01/05/23 Xena Troy MD [address] [place] [phone] PCP - General Internal Medicine 02/18/23 03/14/23 Torie Dowling ANP [address] [place] [phone] PCP - General Family Medicine 03/15/23 documented as of this encounter
--- OUTSIDE RECORDS SUMMARY | 2024-09-11 21:04 | XMS_ITS | Clinical Summary ---
Author Organization [facility] Address [address] [place] [address] Care Team Providers Care Intern Name Role Phone Maco Rae Primary Care Provider [phone] Source Comments PLEASE NOTE, if this patient is a minor, it may be UNLAWFUL to discuss sensitive information that is contained in these records (such as FAMILY PLANNING, MENTAL HEALTH or SUBSTANCE ABUSE) with the minor patient's parent or other person without the patient's specific authorization.[facility] Allergies No known active allergies Medications simethicone (GAS-X ULTRA) 180 mg capsuleIndicati ons:Generalized abdominal pain,Bloating Take 1 Cap by mouth every 6 (six) hours as needed for cramping or flatulence 60 Cap 0 Active Active Problems Problem Noted Date Diagnosed Date 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 Immunizations Name Administration Dates Next Due TDAP 04/29/2020 Social History Tobacco Use Types Packs/Day Years Used Date Smoking Tobacco: Former Smokeless Tobacco: Never Alcohol Use Standard Drinks/Week Comments Yes 5 (1 standard drink = 0.6 oz pur e alcohol) occassionally Social Connections Answer Date Recorded Social Connections and Isolation 0 04/02/2019 Financial Resource Strain Answer Date R ecorded Financial Resource Strain 0 2018 Stress Answer Date Recorded Stress 0 04/02/2019 Physical Activity Answer Date Recorded Physical Activity 0 04/02/2019 Food Insecurity Answer Date Recorded Food 0 04/02/2019 Transportation Needs Answer Date Record ed Transportation 0 04/02/2019 Housing Stability Answer Date Recorded Housing 0 04/02/2019 Safety and Environment Answer Date Jose rded Safety 0 04/02/2019 Utilities Answer Date Recorded Utilities 0 04/02/2019 Employment Answer Date Recorded Employment 0 04/02/2019 Sex and Gender Information Value Date Recorded Sex Assigned at Male 03/06/2018 7:03 AM PDT Legal Sex Male 7:03 AM PDT Gender Identity Male 03/06/2018 7:03 AM PDT Sexual Orientation Straight 03/06/2018 7: 03 AM PDT Last Filed Vital Signs Vital Sign Reading Time Taken Comments Blood Pressure 142/89 04/29/2020 3:54 PM EDT Pulse 86 04/29/2020 3:54 PM EDT Temperature 36.3 ??C (97.3 ??F) 04/29/2020 3:54 PM ED T Respiratory Rate 20 04/29/2020 3:54 PM EDT Oxygen Saturation 98% 09/11/2019 11:51 AM EST Inhaled Oxygen Concentration - - Weight 74.4 kg (164 lb) 04/29/2020 3:54 PM EDT Height 165.1 cm (5' 5 ) 04/29/2020 3:54 PM EDT Body Mass Index 27.29 04/29/2020 3:54 PM EDT Plan of Treatment Health Maintenance Due Date Last Done Comments Hepatitis C Screening 1969 Tobacco Screening 1969 HIV Screening 1984 Imm-Hepatitis B (1 of 3 - 19 + 3-dose series) 1988 CT Colonography 2014 Colonoscopy 2014 Colorectal Cancer Screening 2014 FIT/gFOBT 2014 Fecal DNA 2014 Flexible Sigmoidoscopy 2014 Imm-Zoster, Recombinant (1 of 2) 2019 Diabetes Screening 03/06/2021 03/06/2018 Annual Preventive Care Visit 04/29/2021 04/29/2020 Hypertension Screening (#1) 04/29/2021 Lipid Screening 03/06/2023 03/06/2018 [id number] ( season) 2024 Imm-Influenza (#1) 2024 Alcohol and Drug Screen 08/08/2024 04/29/20 20, 04/29/2020, 03/06/2018 Depression Annual Screen 08/08/2024 04/29/2020, 02/07 Imm-DTaP/Tdap/Td (2 - Td or Tdap) 04/29/2030 020 Procedures Procedure Name Priority Date/Time Associated Diagnosis Comments COMPREHENSIVE METABOLIC PANEL Routine 03/06/2018 8:45 AM EDT Routine adult health maintenance LIPID PANEL Routine 03/06/2018 8:45 AM EDT Routine adult health maintenance from Last 3 Months or Most Recently Relevant to Health Maintenance Results * (ABNORMAL) LIPID PANEL (03/06/2018 8:45 AM EDT) CHOLESTEROL 205(H) 0 - 200 mg/dL [facility] TRIGLYCERIDES 90 0 - 150 mg/dL [facility] HDL CHOLESTEROL 78 >40 mg/dL [facility] LDL CALCULATED 109(H) 0 - 100 mg/dL [facility] TC-HDLC RATIO 2.6 0 - 4.4 mg/dL [facility] Blood specimen (specimen) Blood / Unknown 03/06/2018 8:45 AM EDT 03/06/2018 10:52 AM EDT Narrative [facility] - 03/06/2018 1:55 PM EDT [employer] [address] [place] [address] PT ID [id number] ORD# [id number] [facility]o [facility] - BLOOD DRAW [place] [address], * COMPRE METAB PANEL (03/06/2018 8:45 AM EDT) GLUCOSE 99 70 - 100 mg/dL [facility] Comment:Reference range appl icable to fasting specimens only BUN 12 5 - 25 mg/dL [facility] CREAT 0.77 0.7 - 1.3 mg/dL [facility] GLOMERULAR FILTRATION RATE > 60 [facility] Comment: If patient is -Georgian, multiply result by 1.21 Chronic Kidney Disease: < 60 ml/min/1.73 square meters Kidney Failure: < 15 ml/min/1.73 square meters SODIUM 138 133 - 145 mmol/L [facility] POTASSIUM 4.4 3.5 - 5.5 mmol/L [facility] CHLORIDE 103 96 - 110 mmol/L [facility] CO2 28 21 - 32 mmol/L [facility] ANION GAP 7 3 - 11 [facility] CALCIUM 9.2 8.5 - 10.5 mg/dL [facility] TOTAL PROTEIN 7.4 6.0 - 8.0 G/dL [facility] ALBUMIN 3.9 3.2 - 5.0 G/dL [facility] BILI, TOTAL 0.5 0.0 - 1.4 mg/dL [facility] SGOT 22 10 - 42 U/L [facility] SGPT 32 10 - 60 U/L [facility] ALK PHOS 69 42 - 121 U/L [facility] Blood specimen (specimen) Blood / Unknown 03/06/2018 8:45 AM EDT 03/06/2018 10:52 AM EDT [facility] - 03/06/2018 1:55 PM EDT [facility] [address] [place] [address] PT ID [id number] ORD# [id number] [facility] - BLOOD DRAW Edited Result - Final [facility] [address] [place] [address], from Last 3 Months or Most Recently Relevant to Health Maintenance Insurance [employer] NET DENTAL NET Care Teams Intern Relationship Specialty Start Date End Date Maco Rae PA [address] [place] [address] PCP - General Internal Medicine 10/08/19
--- OUTSIDE RECORDS SUMMARY | 2024-09-11 21:04 | XMS_ITS | Encounter Summary ---
Author Organization [employer] Address [address] [facility] [address] [place] [address] Care Team Providers Care Debeader Name Role Phone Torie Dowling Primary Care Provider [phone] Reason for Visit * Reason Onset Date Comments Error 12/01/2023 Encounter Details Date Type Department Care Team ([facility] st Contact Info) Description 12/01/2023 Telephone [facility] MEDICINE [address] [place], [place] [phone] Torie Dowling ANP [address] [place], [place] [phone] Error Social History Tobacco Use Types Packs/Day Years Used Date Smoking Tobacco: Former Cigarettes Smokeless Tobacco: Never Alcohol Use Standard Drinks/Week Comments Yes 0 (1 standard drink = 0.6 oz pur e alcohol) Depression Answer Date Recorded Patient Health Questionnaire-9 Score 5 02/25/2023 Housing Stability Answer Date Recorded What is your housing situation today? I have bradmaegan salazar 05/16/[address] you [...] Answer Date Recorded Patient Health Questionnaire-2 Score 2 02/25/2023 Sex and Gender Information Value Date Recorded Sex Assigned at Male 12/27/2022 4:29 PM EDT Legal Sex Male 4:07 PM EDT Gender Identity Male 12/27/2022 4:29 PM EDT Sexual Orientation Don't know 12/27/2022 4: 29 PM EDT documented as of this encounter Plan of Treatment Upcoming Encounters Date Type Department Care Team (Late st Contact Info) Description 11/02/2024 1:30 PM EDT Office Visit [facility] [address] [place] [address] Torie Dowling ANP [address] [place] [address] documented as of this encounter Visit Diagnoses Not on filedocumented in this encounter Additional Health Concerns Assessment Noted Time PHQ-9 Depression Total Score: 5 02/26/20 23 1:35 PM EDT documented as of this encounter Care Teams Debeader Relationship Specialty Start Date End Date Torie Dowling ANP [address] [place] [address] PCP - General Family Medicine 03/15/23 documented as of this encounter
--- OUTSIDE RECORDS SUMMARY | 2024-09-11 21:04 | XMS_ITS | Clinical Summary ---
Author Organization [facility] ity Address [address] [place] [address] Care Team Providers Care Procurement Director Name Role Phone Unavailable Primary Care Provider Unavailabl e Social History Tobacco Use Types Packs/Day Years Used Date Smoking Tobacco: Never Assessed Sex and Gender Information Value Date Recorded Sex Assigned at Not on file Gender Identity Not on file Sexual Orientation Not on file Plan of Treatment Health Maintenance Due Date Last Done Comments DTaP,Tdap,and Td Vaccines (1 - Tdap) 1988 Hepatitis B Vaccines (1 of 3 - 19+ 3-dose series) 1988 Zoster Vaccines (1 of 2) 2019 COVID-19 Vaccine (2023-2 5 season) 2024 Influenza Vaccine (#1) 2024 HIB Vaccines Aged Out No longer eligi [...] on patient's age to complete this topic MMR Vaccines Aged Out No longer eligi ble based on patient's age to complete this topic Meningococcal ACWY Vaccine Aged Out N o longer eligible based on patient's age to complete this topic Pneumococcal Vaccine: Pediat rics (0 to 5 Years) and At-Risk Patients (6 to 64 Years) Aged Out No longer eligible b ased on patient's age to complete this topic RSV Immunization Patients Un shelby 20 months Aged Out No longer eligible b ased on patient's age to complete this topic Varicella Vaccines Aged Out No longer eligible based on patient's age to complete this topic
== END ==
LOC: HO.SL 20:30
PROVIDERS: PCP Nurse Practitioner Primary Care; Visit Provider Nurse Practitioner Primary Care
DX: R06.1 Stridor (principal); R06.83 Snoring; R40.0 Somnolence
CPT/HCPCS: 95810

== ENCOUNTER → 2024-09-11 20:30 | Outpatient (BNV) | DX: G47.33 Obstructive sleep apnea (adult) (pediatric) (principal) | CPT/HCPCS: 95810 ==

== ENCOUNTER 2025-02-04 13:17 | Outpatient (REF) | payer MEDICAID, SELFPAY ==
--- NOTE | ~2025-02-04 | XR_ITS ---
EXAMINATION: XR KNEE 3 VIEWS LEFT HISTORY: atraumatic knee pain COMPARISON: There are no prior studies available for comparison. FINDINGS: Three views of the left knee are submitted. Osseous mineralization is normal. There is no fracture or dislocation. The joint spaces are preserved. There is no joint effusion. A 3 mm metallic density is seen along the anterior aspect of the medial tibial plateau which may represent a foreign body. XR/XR knee LT 3V IMPRESSION: Possible metallic foreign body as described. No osseous abnormality is identified. Electronically signed by: Xavier Rivas MD 02/04/2025 01:54 PM EDT
--- NOTE | ~2025-02-04 | XR_ITS ---
EXAMINATION: XR ANKLE 3 OR MORE VIEWS LEFT HISTORY: atraumatic ankle pain COMPARISON: There are no prior studies available for comparison. FINDINGS: Three views of the left ankle are submitted. Osseous mineralization is normal. A well-corticated osseous density adjacent to the anterior talus may represent the result of old trauma. There is no acute fracture or dislocation. The joint spaces are preserved. The soft tissues are unremarkable. XR/XR ankle LT min 3V IMPRESSION: No evidence of acute fracture of the left ankle. Electronically signed by: Xavier Rivas MD 02/04/2025 01:51 PM EDT
--- OUTSIDE RECORDS SUMMARY | 2025-02-04 13:45 | XMS_ITS | Clinical Summary ---
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 Immunizations Immunization Administration Dates Next Due TDAP 04/29/2020 Social [...] 86 04/29/2020 3:54 PM EDT Temperature 36.3 C (97.3 F) 04/29/2020 3:54 PM EDT Respiratory Rate 20 04/29/2020 3:54 PM EDT Oxygen Saturation 98% 09/11/2019 11:51 AM EST Inhaled Oxygen Concentration - - Weight 74.4 kg (164 lb) 04/29/2020 3:54 PM EDT Height 165.1 cm (5' 5 ) 04/29/2020 3:54 PM EDT Body Mass Index 27.29 04/29/2020 3:54 PM EDT Plan of Treatment Health Maintenance Due Date Last Done Comments Anxiety Screening 1969 Hepatitis C Screening 1969 Tobacco Screening 1969 HIV Screening 1984 Imm-Hepatitis B (1 of 3 - 19 + 3-dose series) 1988 CT Colonography 2014 Colonoscopy 2014 Colorectal Cancer Screening 2014 FIT/gFOBT 2014 Fecal DNA 2014 Flexible Sigmoidoscopy 2014 Imm-Pneumococcal 50+ (1 of 1 - PCV) 2019 Imm-Zoster, Recombinant (1 of 2) 2019 Diabetes Screening 03/06/2021 03/06/2018 Annual Wellness (Adult): Ind icated (All Coverage) 04/29/2021 04/29/2020 Hypertension Screening (#1) 04/29/2021 Lipid Screening 03/06/2023 03/06/2018 [id number] (1 - season) 2024 Alcohol and Drug Screen 08/08/2024 04/29/20 20, 04/29/2020, 03/06/2018 Depression Annual Screen 08/08/2024 04/29/2020, 02/07 Imm-Influenza (Season Ended) 2025 Imm-DTaP/Tdap/Td (2 - Td or Tdap) 04/29/2030 [...] EDT) CHOLESTEROL 205(H) 0 - 200 mg/dL [facility] TRIGLYCERIDES 90 0 - 150 mg/dL [facility] HDL CHOLESTEROL 78 >40 mg/dL [facility] LDL CALCULATED 109(H) 0 - 100 mg/dL [facility] TC-HDLC RATIO 2.6 0 - 4.4 mg/dL [facility] Blood specimen (specimen) Blood / Unknown 03/06/2018 8:45 AM EDT 03/06/2018 10:52 AM EDT Narrative [facility] - 03/06/2018 1:55 PM EDT [facility] [employer] [address] [place] [address] PT ID [id number] ORD# [id number] [facility] - BLOOD DRAW Edited Result - Final [facility] [address] [place] [address], * COMPRE METAB PANEL (03/06/2018 8:45 AM EDT) GLUCOSE 99 70 - 100 mg/dL [facility] Comment:Reference range appl icable to fasting specimens only BUN 12 5 - 25 mg/dL [facility] CREAT 0.77 0.7 - 1.3 mg/dL [facility] GLOMERULAR FILTRATION RATE > 60 [facility] Comment: If patient is -[place] Korean, multiply result by 1.21 Chronic Kidney Disease: < 60 ml/min/1.73 square meters Kidney Failure: < 15 ml/min/1.73 square meters SODIUM 138 133 - 145 mmol/L [facility] POTASSIUM 4.4 3.5 - 5.5 mmol/L [facility] CHLORIDE 103 96 - 110 mmol/L [facility] CO2 28 21 - 32 mmol/L [facility] ANION GAP 7 3 - 11 [facility] CALCIUM 9.2 8.5 - 10.5 mg/dL [facility] TOTAL PROTEIN 7.4 6.0 - 8.0 G/dL [facility] ALBUMIN 3.9 3.2 - 5.0 G/dL [facility] BILI, TOTAL 0.5 0.0 - 1.4 mg/dL [facility] SGOT 22 10 - 42 U/L [facility] SGPT 32 10 - 60 U/L [facility] ALK PHOS 69 42 - 121 U/L [facility] Blood specimen (specimen) Blood / Unknown 03/06/2018 8:45 AM EDT 03/06/2018 10:52 AM EDT Narrative [facility] - 03/06/2018 1:55 PM EDT [facility] [address] [place] [address] PT ID [id number] ORD# [id number] [facility] - BLOOD DRAW Edited Result - Final [facility] [address] [place] [address], from Last 3 Months or Most Recently Relevant to Health Maintenance Insurance [employer] NET DENTAL NET Care Teams Milling Machine Tender Relationship Specialty Start Date End Date Maco Rae PA [address] [place] [id number] PCP - General Internal Medicine 10/08/19
--- OUTSIDE RECORDS SUMMARY | 2025-02-04 13:45 | XMS_ITS | Clinical Summary ---
Author Organization [facility] ity Address [address] [place] [address] Care Team Providers Care Receivable Clerk Name Role Phone Unavailable Primary Care Provider Unavailabl e Social History Tobacco Use Types Packs/Day Years Used Date Smoking Tobacco: Never Assessed Sex and Gender Information Value Date Recorded Sex Assigned at Not on file Legal Sex Male 4:55 AM EST Gender Identity Not on file Sexual Orientation Not on file Plan of Treatment Health Maintenance Due Date Last Done Comments DTaP,Tdap,and Td Vaccines (1 - Tdap) 1988 Hepatitis B Vaccines (1 of 3 - 19+ 3-dose series) 1988 Pneumococcal Vaccine: 50+ Ye ars (1 of 1 - PCV) 2019 Zoster Vaccines (1 of 2) 2019 COVID-19 Vaccine ( - 2023-2 5 season) 2024 Influenza Vaccine (Season Ended) 2025 HIB Vaccines Aged Out No longer eligi [...] patient's age to complete this topic Meningococcal B Vaccine Aged Out No l onger eligible based on patient's age to complete [...]
[2025-02-04 16:09] LABS: Hematocrit 47.8 % (42.0-52.0); Hemoglobin 16.1 g/dl (14.0-18.0)
[2025-02-04 16:24] LABS: Cholesterol 222 mg/dL (<200); HDL Cholesterol 55 mg/dL (>40); LDL Cholesterol Calculated 143 mg/dL (<100); Triglycerides 122 mg/dL (<150)
== END 2025-02-04 13:18 | disposition home or self-care (01) ==
LOC: HO.HHCX 13:17
PROVIDERS: PCP Nurse Practitioner Primary Care; Visit Provider Nurse Practitioner Primary Care
DX: M25.562 Pain in left knee (principal); G89.29 Other chronic pain; M25.572 Pain in left ankle and joints of left foot; R40.0 Somnolence; E78.00 Pure hypercholesterolemia, unspecified
CPT/HCPCS: 36415; 73562; 73610; 80061; 85014; 85018

== ENCOUNTER → 2025-02-04 13:28 | Outpatient (BNV) | payer MEDICAID, SELFPAY | PROVIDERS: PCP Nurse Practitioner Primary Care; Visit Provider Radiology Diagnostic Radiology | DX: M25.562 Pain in left knee (principal); M25.572 Pain in left ankle and joints of left foot | CPT/HCPCS: 73562; 73610 ==

== ENCOUNTER 2025-03-25 13:12 | Outpatient (AMB) | payer MEDICAID, SELFPAY ==
--- NOTE | 2025-03-25 13:27 | A.OFFVIS_ITS ---
Vital Signs 03/25/25 13:33 Height 5 ft 6 in Weight 145 lb BMI 23.4 Handedness Right Intake Visit Reasons: OV LT hand pain- EMG review Intake Note: Trip is a 54 year old right hand dominant male who presents today for a follow up visit of his left hand pain. At his last visit, patient complained of bilateral hand numbness and tingling with negative EMG for everything other than right cubital tunnel syndrome (2022). An EMG was ordered and a referral to occupational therapy was placed for range of motion and strengthening. Today, patient reports OT did not help his symptoms. Patient reports worsening numbness and tingling, bilaterally, left is worse. Denies new onset of finger locking and catching. History of Left Ring Trigger Finger Release, 06/06/[address] Mchugh Allergies No Known Allergies (No Known Allergies*) Allergy (Verified 03/25/25 13:31) HPI HPI OV LT hand pain- EMG review: Details: Trip is a 54 year old right hand dominant male who presents today for a follow up visit of his left hand pain. At his last visit, patient complained of bilateral hand numbness and tingling with negative EMG for everything other than right cubital tunnel syndrome (2022). An EMG was ordered and a referral to occupational therapy was placed for range of motion and strengthening. Today, patient reports OT did not help his symptoms. Patient reports worsening numbness and tingling, bilaterally, left is worse. Patient reports that all digits go numb except for the right small finger. Denies new onset of finger locking and catching. History of Left Ring Trigger Finger Release, 06/06/[address] 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 occupation: rt hand[place] Review of Systems Const All systems reviewed & are unremarkable except as noted in HPI and below Physical Exam Vital Signs: BMI result Body Mass Index 23.4 Const General: no acute distress and alert Orientation/consciousness: patient oriented x3 Neuro General: patient oriented x3 Extrem Other: Evaluation of bilateral Upper Extremity: The patient is alert, oriented, and in no acute distress Neuro: Median, Ulnar, Radial nerves motor and sensory intact and sensation is normal to the tips of all digits today in clinic No thenar or intrinsic wasting He reports occasionally getting intermittent numbness in the median nerve distribution. He denies ever having any numbness in the small finger. Vascular: Cap refill brisk ROM: Patient is able to flex and extend all digits of bilateral hands fully, but reports some slight discomfort when doing so in all joints of bilateral fingers Nerve Conduction Study: IMPRESSION: 1. This is an abnormal study. 2. There is electrodiagnostic evidence for right ulnar neuropathy, most likely at the elbow. 3. There is no electrodiagnostic evidence for median neuropathy, brachial plexopathy, or cervical radiculopathy. 4. There is no electrodiagnostic evidence for ulnar neuropathy on the left. Thank you for your kind referral. Genesis Sue MD, FANG 05/13/23 Psych Appearance: grossly normal Affect: normal affect Attitude: cooperative Assessment & Plan Assessment & Plan (1) Bilateral hand pain: Code(s): M79.641 - Pain in right hand; M79.642 - Pain in left hand Category: Medical (2) Numbness and tingling in both hands: Code(s): R20.0 - Anesthesia of skin; R20.2 - Paresthesia of skin Category: Medical (3) Cubital tunnel syndrome on right: Code(s): G56.21 - Lesion of ulnar nerve, right upper limb Category: Medical Plan 1. Cubital tunnel syndrome, right, asymptomatic 2. Numbness and tingling bilateral hands with the EMG negative for everything other than cubital tunnel syndrome on the right At this time, patient was referred for repeat EMG and nerve conduction study to assess the health of the nerves of bilateral upper extremities Patient will follow-up after EMG and nerve conduction study for results review and discussion of further treatment options if indicated Patient is also provided with bilateral Velcro wrist splints to be worn at night to see if this will help his nighttime symptoms Patient was amenable to this plan Orders: Orders NE electromyogram (EMG) Today R20.0 - Anesthesia of skin, R20.2 - Paresthesia of skin NE nerve conduction velocity Today R20.0 - Anesthesia of skin, R20.2 - Paresthesia of skin Coding Level of Care Code Est Pt Level 3 (32034) Diagnoses Bilateral hand pain M79.641; M79.642 Numbness and tingling in both hands R20.0; R20.2 Cubital tunnel syndrome on right G56.21
[2025-03-25 13:33] VITALS: BMI 23.4
--- OUTSIDE RECORDS SUMMARY | 2025-03-25 14:05 | XMS_ITS | Encounter Summary ---
Author Organization [employer] Address [address] [facility] [address] [place] [address] Care Team Providers Care Sprayer Hand Name Role Phone Torie Dowling Primary Care Provider [phone] Reason for Visit * Reason Onset Date Comments Error 12/01/2023 Encounter Details Date Type Department Care Team ([facility] st Contact Info) Description 12/01/2023 Telephone [facility] [address] [place], [place] [phone] Torie Dowling ANP [address] [place], [place] [phone] Error Social History Tobacco Use Types Packs/Day [...] t he electric, gas, oil or water [facility] threatened to shut off services in your [...] as of this encounter Plan of Treatment Not on file documented as of this encounter Visit Diagnoses Not on filedocumented in this encounter Additional Health Concerns Assessment Noted Time PHQ-9 Depression Total Score: 5 02/26/20 1:35 PM EDT documented as of this encounter Care Teams Sprayer Hand Relationship Specialty Start Date End Date Torie Dowling ANP [address] [place] [phone] PCP - General Family Medicine 03/15/23 documented as of this encounter
--- OUTSIDE RECORDS SUMMARY | 2025-03-25 14:05 | XMS_ITS | Clinical Summary ---
Author Organization [facility] Address [address] [place] [address] Care Team Providers Care Resident Athletic Trainer Name Role Phone Maco Rae Primary Care Provider [phone] Source Comments PLEASE NOTE, if this patient [...] Screening (#1) 04/29/2021 Lipid Screening 03/06/2023 03/06/2018 [id number] ( - season) 2024 Alcohol and Drug Screen 08/08/2024 04/29/20 20, 04/29/2020, 03/06/2018 Depression Annual Screen 08/08/2024 04/29/2020, 02/07 Imm-Influenza (#1) 2025 Imm-DTaP/Tdap/Td (2 - Td or Tdap) [...] EDT) CHOLESTEROL 205(H) 0 - 200 mg/dL [facility] TRIGLYCERIDES 90 0 - 150 mg/dL [facility] HDL CHOLESTEROL 78 >40 mg/dL [facility] LDL CALCULATED 109(H) 0 - 100 mg/dL [facility] TC-HDLC RATIO 2.6 0 - 4.4 mg/dL [facility] Blood specimen (specimen) Blood / Unknown 03/06/2018 8:45 AM EDT 03/06/2018 10:52 AM EDT Narrative [facility] - 03/06/2018 1:55 PM EDT [facility] Vivaty [address] [place] [address] PT ID [id number] ORD# [id number] Maco OKEEFE LAB - BLOOD DRAW Edited Result - Final [facility] [address] [place] [address], * COMPRE METAB PANEL (03/06/2018 8:45 AM EDT) GLUCOSE 99 70 - 100 mg/dL [facility] Comment:Reference range appl icable to fasting specimens only BUN 12 5 - 25 mg/dL [facility] CREAT 0.77 0.7 - 1.3 mg/dL [facility] GLOMERULAR FILTRATION RATE > 60 [facility] Comment: If patient is -Kyrgyz, multiply result by 1.21 Chronic Kidney Disease: < 60 ml/min/1.73 square meters Kidney Failure: < 15 ml/min/1.73 square meters SODIUM 138 133 - 145 mmol/L [facility] POTASSIUM 4.4 3.5 - 5.5 mmol/L [facility] CHLORIDE 103 96 - 110 mmol/L [facility] CO2 28 21 - 32 mmol/L [facility] ANION GAP 7 3 - 11 [facility] CALCIUM 9.2 8.5 - 10.5 mg/dL [facility] TOTAL PROTEIN 7.4 6.0 - 8.0 G/dL [facility] ALBUMIN 3.9 3.2 - 5.0 G/dL [facility] BILI, TOTAL 0.5 0.0 - 1.4 mg/dL [facility] SGOT 22 10 - 42 U/L [facility] SGPT 32 10 - 60 U/L [facility] ALK PHOS 69 42 - 121 U/L [facility] Blood specimen (specimen) Blood / Unknown 03/06/2018 8:45 AM EDT 03/06/2018 10:52 AM EDT Narrative [facility] - 03/06/2018 1:55 PM EDT [facility] [address] [place] [address] PT ID [id number] ORD# [id number] Maco OKEEFE LAB - BLOOD DRAW Edited Result - Final [facility] [address] [place] [address], from Last 3 Months or Most Recently Relevant to Health Maintenance Insurance [employer] Care Teams Resident Athletic Trainer Relationship Specialty Start Date End Date Maco Rae PA [address] [place] [id number] PCP - General Internal Medicine 10/08/19
--- OUTSIDE RECORDS SUMMARY | 2025-03-25 14:05 | XMS_ITS | Clinical Summary ---
Author Organization [facility] Address [address] [place] [address] Phone Care Team Providers Care Collaborating Supervising Physician Name Role Phone Pcp, Unknown Primary Care Provider Unavailabl e Allergies No known active allergies Social History Tobacco Use Types Packs/Day Years Used Date Smoking Tobacco: Never Smokeless Tobacco: Never Alcohol Use Standard Drinks/Week Comments Never 0 (1 standard drink = 0.6 oz pur e alcohol) Education Answer Date Recorded Are you interested in more education? Not on david e 12/04/2022 Are you concerned about learning? Not on file 12/04/2022 No 12/04/2022 No 12/04/2022 Digital Access Answer Date Recorded No 01/02/2023 No 01/02/2023 No 01/02/2023 Reliable internet access at home? Not on file 01/02/2023 Device with a working camera? Not on file Sex and Gender Information Value Date Recorded Sex Assigned at Male 04/03/2021 5:59 PM EDT Legal Sex Male 5:35 PM EDT Gender Identity Male 04/03/2021 5:59 PM EDT Sexual Orientation Straight 04/03/2021 5: 59 PM EDT Last Filed Vital Signs Vital Sign Reading Time Taken Comments Blood Pressure 137/90 04/04/2021 12:15 AM EDT Pulse 86 04/04/2021 12:15 AM EDT Temperature 36.4 C (97.5 F) 04/03/2021 5:50 PM EDT Respiratory Rate 16 04/04/2021 12:15 AM EDT Oxygen Saturation 97% 04/04/2021 12:15 AM EDT Inhaled Oxygen Concentration - - Weight 72.6 kg (160 lb) 04/03/2021 5:50 PM EDT Height 167.6 cm (5' 6 ) 04/03/2021 5:50 PM EDT Body Mass Index 25.82 04/03/2021 5:50 PM EDT Plan of Treatment Health Maintenance Due Date Last Done Comments LIPID PANEL 1969 DEPRESSION SCREENING 1981 HEPATITIS C SCREENING 1987 HIV ONE-TIME SCREENING (18-6 5 YEARS) 1987 SMOKING STATUS SCREENING (On ce After 26 Yrs) 1995 COLOGUARD 2014 COLONOSCOPY 2014 COLORECTAL CANCER SCREENING 2014 FIT TEST 2014 FOBT 2014 SIGMOIDOSCOPY 2014 VIRTUAL COLONOSCOPY 2014 PNEUMOCOCCAL VACCINES (50+ years) (1 of 1 - PCV) 2019 ZOSTER VACCINES (1 of 2) 2019 COVID-19 VACCINE (3 - 2023-2 5 season) 2024 12/17/2020, 11/27/2020 Adult Td,Tdap Booster 04/29/2030 04/29/2020 HEPATITIS A VACCINES Aged Out No long er eligible based on patient's age to complete this topic HIB VACCINES Aged Out No longer eligi ble based on patient's age to complete this topic MENINGOCOCCAL VACCINES (ACWY) Aged Out No longer eligible based on patient's age to complete this topic MENINGOCOCCAL VACCINES (B) Aged Out N o longer eligible based on patient's age to complete this topic Medical Devices Not on file Insurance [employer] [id number] Care Teams Collaborating Supervising Physician Relationship Specialty Start Date End Date Pcp, Unknown PCP - General 04/03/21 Additional Source Comments The information contained in this document represents components of the legal health record. It is not the complete legal health record.[facility]
--- OUTSIDE RECORDS SUMMARY | 2025-03-25 14:05 | XMS_ITS | Clinical Summary ---
Author Organization [facility] ity Address [address] [place] [address] Care Team Providers Care Online Publisher Name Role Phone Unavailable Primary Care Provider [...] Vaccines (1 of 2) 2019 COVID-19 Vaccine (1 - 2023-2 5 season) 2024 Depression Screening 08/08/2024 Influenza Vaccine (#1) 2025 HIB Vaccines Aged Out No longer [...]
== END 2025-03-25 13:43 | disposition home or self-care (01) ==
LOC: HO.HOS 13:13
PROVIDERS: PCP Nurse Practitioner Primary Care
DX: M79.641 Pain in right hand (principal); M79.642 Pain in left hand; R20.0 Anesthesia of skin; R20.2 Paresthesia of skin; G56.21 Lesion of ulnar nerve, right upper limb
CPT/HCPCS: 99213

== ENCOUNTER → 2025-03-25 13:12 | Outpatient (BNVA) | payer MEDICAID, SELFPAY | PROVIDERS: PCP Nurse Practitioner Primary Care | DX: G56.21 Lesion of ulnar nerve, right upper limb (principal); R20.0 Anesthesia of skin; R20.2 Paresthesia of skin; M79.642 Pain in left hand | CPT/HCPCS: 99212 ==

== ENCOUNTER 2025-05-29 14:49 | Outpatient (REF) | payer MEDICAID, SELFPAY ==
--- NOTE | 2025-05-29 14:54 | EMG_ITS ---
Chief complaint: Bilateral hand pain and numbness EMG done by [facility] 05/13/2023 right upper extremity showed suggestion of ulnar neuropathy; but bilateral upper extremity 08/17/2024 was normal. Reason for referral: Evaluate for ulnar neuropathy or Carpal Tunnel Syndrome Referred by: Sebastian OKEEFE Procedure done: Bilateral upper extremities NCS/EMG Precautions and/or limitations: None The limb temperature was monitored continuously and remained between 32-36 degrees C during the performance of the NCS. Nerve Conduction Studies Anti Sensory Summary Table ?Stim Site NR Onset (ms) Norm Onset (ms) Peak (ms) Norm Peak (ms) O-P Amp (?V) Norm O-P Amp Site1 Site2 Delta-0 (ms) Dist (cm) Rojelio (m/s) Norm Rojelio (m/s) Left Median Anti Sensory (2nd Digit) Wrist ? 2.1 3.3 <3.6 33.6 >10 Wrist 2nd Digit 2.1 14.0 67 Right Median Anti Sensory (2nd Digit) Wrist ? 2.6 3.2 <3.6 25.2 >10 Wrist 2nd Digit 2.6 14.0 54 Left Radial Anti Sensory (Thumb) Forearm ? 1.7 2.2 <3.1 17.1 Forearm Thumb 1.7 0.0 Left Ulnar Anti Sensory (5th Digit) Wrist ? 1.9 2.9 <3.7 20.0 >15.0 Wrist 5th Digit 1.9 14.0 74 Right Ulnar Anti Sensory (5th Digit) Wrist ? 1.0 3.0 <3.7 20.3 >15.0 Wrist 5th Digit 1.0 14.0 140 Motor Summary Table ?Stim Site NR Onset (ms) Norm Onset (ms) O-P Amp (mV) Norm O-P Amp iAmp (mV) Amp (1st) (%) Site1 Site2 Delta-0 (ms) Dist (cm) Rojelio (m/s) Norm Rojelio (m/s) Left Median Motor (Abd Poll Brev) Wrist ? 3.3 <3.9 7.7 >4.5 8.4 100.0 Elbow Wrist 4.0 21.0 53 >45 Elbow ? 7.3 6.8 7.6 88.3 Right Median Motor (Abd Poll Brev) Wrist ? 3.3 <3.9 4.5 >4.5 5.4 100.0 Elbow Wrist 4.2 21.0 50 >45 Elbow ? 7.5 4.4 5.2 97.8 Left Ulnar Motor (Abd Dig Minimi) Wrist ? 2.4 <3.0 5.2 >5 6.4 100.0 B Elbow Wrist 3.5 19.0 54 >45 B Elbow ? 5.9 5.5 6.8 105.8 A Elbow B Elbow 1.6 10.0 63 >45 A Elbow ? 7.5 5.1 6.5 98.1 Right Ulnar Motor (Abd Dig Minimi) Wrist ? 2.5 <3.0 7.1 >5 8.3 100.0 B Elbow Wrist 3.4 18.5 54 >45 B Elbow ? 5.9 6.5 7.7 91.5 A Elbow B Elbow 1.0 10.0 100 >45 A Elbow ? 6.9 6.7 8.0 94.4 EMG ?Side Muscle Nerve Root Ins Act Fibs Psw Amp Dur Poly Recrt Int Pat Comment Right 1stDorInt Ulnar C8-T1 Nml Nml Nml Nml Nml 0 Nml Complete Right FlexCarRad Median C6-7 Nml Nml Nml Nml Nml 0 Nml Complete Right Biceps Musculocut C5-6 Nml Nml Nml Nml Nml 0 Nml Complete Right Triceps Radial C6-7-8 Nml Nml Nml Nml Nml 0 Nml Complete Right Deltoid Axillary C5-6 Nml Nml Nml Nml Nml 0 Nml Complete Left 1stDorInt Ulnar C8-T1 Nml Nml Nml Nml Nml 0 Nml Complete Left FlexCarRad Median C6-7 Nml Nml Nml Nml Nml 0 Nml Complete Left Biceps Musculocut C5-6 Nml Nml Nml Nml Nml 0 Nml Complete Left Triceps Radial C6-7-8 Nml Nml Nml Nml Nml 0 Nml Complete Left Deltoid Axillary C5-6 Nml Nml Nml Nml Nml 0 Nml Complete FINDINGS: All motor and sensory nerves tested showed normal latencies, amplitudes and conduction velocities. Concentric needle EMG was performed in selected muscles of the bilateral upper extremities. Study did not reveal signs of electric abnormalities as shown in the table above. IMPRESSION: 1. This is a normal study. 2. There is no electrodiagnostic evidence for median neuropathy, ulnar neuropathy, brachial plexopathy, or cervical radiculopathy. Clinical comment: No change since 08/17/2024. Thank you for your kind referral. Genesis Sue MD, FANG Board Certified, [place] Board of Physical Medicine and Rehabilitation (ABPMR) Board Certified, [place] Board of Electrodiagnostic Medicine (ABEM) CODIN [phone], 2 extremities MTDD
--- OUTSIDE RECORDS SUMMARY | 2025-05-29 21:00 | XMS_ITS | Encounter Summary ---
Author Organization [facility] Address [address] [place] [address] [place] [phone] Phone Care Team Providers Care Sales Account Director Name Role Phone Pcp, Unknown Primary Care Provider Unavailabl e Encounter Details Date Type Department Care Team (Late st Contact Info) Description 04/03/2021 Procedure Pass [facility], Ct Scan - [facility] [address] [place] [address] Social History Tobacco Use Types Packs/Day Years Used Date Smoking Tobacco: Never Smokeless Tobacco: Never Alcohol Use Standard Drinks/Week Comments Never 0 (1 standard drink = 0.6 oz pur e alcohol) Sex and Gender Information Value Date Recorded Sex Assigned at Male 04/03/2021 5:59 PM EDT Legal Sex Male 5:35 PM EDT Gender Identity Male 04/03/2021 5:59 PM EDT Sexual Orientation Straight 04/03/2021 5: 59 PM EDT documented as of this encounter Functional Status * Calculated C-SSRS Risk Score (Lifetime/Recent) Answer Date of Assessment Author No Risk Indicated 04/03/2021 5:52 PM EDT Sophie Smith RN * [place] Suicide Severity Rating Scale (Screener/Recent Self-Report) Question Answer Date of Assessment Author 1. Wish to be (Past 1 Month) No 021 5:52 PM EDT Sophie Smith, RN 2. Non-Specific Active Suici adrian Thoughts (Past 1 Month) No 04/03/2021 5:52 PM EDT Dario Smith RN 6. Suicidal Behavior (Lifetime) No 5:52 PM EDT Sophie Smith RN documented as of this encounter Plan of Treatment Not on file documented as of this encounter Visit Diagnoses Not on filedocumented in this encounter Care Teams Sales Account Director Relationship Specialty Start Date End Date Pcp, Unknown PCP - General 04/03/21 documented as of this encounter Additional Source Comments The information contained in this document represents components of the legal health record. It is not the complete legal health record.[facility]
--- OUTSIDE RECORDS SUMMARY | 2025-05-29 21:00 | XMS_ITS | Encounter Summary ---
Author Organization [facility] Address [address] [place] [address] 7 [place] [address] Care Team Providers Care Tap Dancer Name Role Phone Xena Troy MD Primary Care Pro vider Xena Troy MD Primary Care Pro vider Torie Dowling Primary Care Provider [phone] Reason for Visit * Reason Onset Date Comments New Patient Appt 12/27/2022 Encounter Details Date Type Department Care Team ([facility] st Contact Info) Description 12/27/2022 Telephone [facility] [address] [place] [address] [phone] Xena Troy MD [address] [place], [place] [phone] New Patient Appt Social History Tobacco Use [...] PAR Rocio Jarrell called pt to Offer PHARMACY BENEFIT MANAGER appt. Pt demographics and insurance information were verified. Pt reports previous care at Pt reports no medical conditions. Pt is not taking any medication at this time. Pt given PHARMACY BENEFIT MANAGER appt with on 02/09/[address] Xena Valadez @ 9:15 am.Pt will be sent appt reminder card and medical release form and agrees to complete and to return tomedical records prior to PHARMACY BENEFIT MANAGER appt. documented in this encounter Plan of Treatment Upcoming Encounters Date Type Department Care Team (Late st Contact Info) Description 06/06/2025 2:00 PM EDT Office Visit [facility] [address] [place], [place] [phone] Torie Dowling ANP [address] [place] [address] documented as of this encounter Visit Diagnoses Not on filedocumented in this encounter Care Teams Tap Dancer Relationship Specialty Start Date End Date Xena Troy MD [address] [place] [phone] PCP - General Internal Medicine 12/27/22 01/05/23 Xena Troy MD [address] [place] [phone] PCP - General Internal Medicine 02/18/23 03/14/23 Torie Dowling ANP [address] [place] [phone] PCP - General Family Medicine 03/15/23 documented as of this encounter
--- OUTSIDE RECORDS SUMMARY | 2025-05-29 21:00 | XMS_ITS | Encounter Summary ---
Author Organization [facility] Address [address] [place] [address] [place] [phone] Phone Care Team Providers Care Apprentice Jockey Name Role Phone Pcp, Unknown Primary Care Provider Unavailabl e Encounter Details Date Type Department Care Team (Late st Contact Info) Description 04/03/2021 Procedure Pass [facility], Ct Scan - [facility] [address] [place] [address] Social History Tobacco Use Types Packs/Day Years [...] 5:52 PM EDT Sophie Smith RN * [place] Suicide Severity Rating Scale (Screener/Recent Self-Report) Question [...] on filedocumented in this encounter Care Teams Apprentice Jockey Relationship Specialty Start Date End Date Pcp, Unknown PCP - General 04/03/21 documented as of this encounter Additional Source Comments The information contained in this document represents components of the legal health record. It is not the complete legal health record.[facility]
--- OUTSIDE RECORDS SUMMARY | 2025-05-29 21:00 | XMS_ITS | Clinical Summary ---
Author Organization [facility] ity Address [address] [place] [address] Care Team Providers Care Patient Registration Representative Name Role Phone Unavailable Primary Care Provider [...] 2019 Zoster Vaccines (1 of 2) 2019 Depression Screening 08/08/2024 COVID-19 Vaccine (1 - 2023-2 5 season) 2025 Influenza Vaccine (#1) 2025 RSV Immunization Adult Patie nts (1 - 1-dose 75+ series) 2044 HIB Vaccines Aged Out No longer eligi [...]
--- OUTSIDE RECORDS SUMMARY | 2025-05-29 21:00 | XMS_ITS | Encounter Summary ---
Author Organization [facility] Address [address] [place] [address] [place] [phone] Phone Care Team Providers Care Stable Helper Name Role Phone Pcp, Unknown Primary Care Provider Unavailabl e Encounter Details Date Type Department Care Team (Late st Contact Info) Description 04/03/2021 Procedure Pass [facility], Ct Scan - [facility] [address] [place] [address] Social History Tobacco Use Types Packs/Day Years [...] 5:52 PM EDT Sophie Smith RN * [place] Suicide Severity Rating Scale (Screener/Recent Self-Report) Question [...] on filedocumented in this encounter Care Teams Stable Helper Relationship Specialty Start Date End Date Pcp, Unknown PCP - General 04/03/21 documented as of this encounter Additional Source Comments The information contained in this document represents components of the legal health record. It is not the complete legal health record.[facility]
--- OUTSIDE RECORDS SUMMARY | 2025-05-29 21:00 | XMS_ITS | Clinical Summary ---
Author Organization [employer] Address [address] [facility] 7t [place] [address] Care Team Providers Care Casting Operator Name Role Phone Torie Dowling Primary Care Provider [phone] Allergies No known active allergies Medications * This document contains information received from the source organization and may not represent a complete record from that organization. Blood Pressure kitIndications:E levated blood pressure reading without diagnosis of hypertension 1 kit in the morning. 1 kit 3 Active QUEtiapine (SEROquel) 50 MG tablet Take 50 mg by mouth at bedtime. 4 Active PARoxetine (Paxil) 30 MG tablet Take 60 mg by mouth Once daily. 4 Active olmesartan (BENIcar) 20 MG tabletIndication s:Benign essential HTN TAKE 1 TABLET BY MOUTH EVERY DAY 90 tablet 1 5 Active Diclofenac Sodium (Voltaren) 1 % gelIndications:C hronic pain of left knee,Chronic elbow pain, left,Chronic pain of left ankle Apply up to 4x/d to affected joint(s) for pain/swelling 100 g 2 5 Active atorvastatin (Lipitor) 10 MG tabletIndication s:Elevated cholesterol Take 1 tablet (10 mg) by mouth at bedtime. 30 tablet 11 5 02/12/20 26 Active dextran 70-hypromellose (artificial tears) 0.1-0.3 % ophthalmic solutionIndicati ons:Dry eyes Administer 1 drop into both eyes if needed in the morning, at noon, and at bedtime for dry eyes. 15 mL 3 4 05/04/20 25 Active Problems Problem Noted Date Diagnosed Date ROGER (obstructive sleep apnea) 11/02/2024 Overview (11/02/2024): Images from the original note were not included. Dx'd on sleep study 09/2024 Benign essential HTN 01/27/2024 Screening for colon [...] Encounters Date Type Department Care Team Description 05/29/2025 Patient Outreach [address] [address] Torie Dowling ANP Pre-visit Planning (SDOH screening was completed on 10/26/2024) 04/22/2025 Refill [facility] [address] [place] [phone] Torie Dowling ANP Benign essential HTN 04/03/[address] [phone] Torie Dowling ANP May recall from Last 3 Months Immunizations Immunization Administration Dates Next Due Hep B, adult 11/02/2023 Influenza Injectable Quadriv alant Preservative Free IIV4 MDCK 06/15/2023 Influenza, seasonal, injectable, preservative fr ee 04/30/2024 Pfizer Covid-19 Vaccine 12+ 04/30/2024 Pneumococcal Conjugate PCV 20 11/02/2024 Tdap 04/29/2020 Zoster, Recombinant 08/18/2023,06/15/2023 Social History Tobacco Use Types Packs/Day Years Used Date Smoking Tobacco: Former Cigarettes Passive Smoke Exposure: Past Smokeless Tobacco: Never Tobacco Cessation:Counseling Given: Not Answered Alcohol Use Standard Drinks/Week Comments Yes 0 [...] Answer Date Recorded Patient Health Questionnaire-9 Score 10 11/02/2024 Patient Health Questionnaire-9 Score 10 11/02/2024 Last PHQ-9: Questionnaire Data Not on file 0 11/02/2024 Housing Stability Answer Date Recorded What is your housing situation today? I have brad salazar 10/26/[address] you li ve. Do you have problems with any of the following? None of the above 10/26/2024 Food Insecurity Answer Date Recorded Within the past 12 months, y ou worried that your food would run out before you got money to buy more: Never True 10/26/2024 Within the past 12 months,th e food you bought just didn't last and you didn't have enough money to get more: Never True Transportation Answer Date Recorded In the past [...] Answer Date Recorded Patient Health Questionnaire-2 Score 3 11/02/2024 Internet Access Answer Date Recorded Internet Access Q1 Yes 10/26/2024 Internet Access Q2 Not on file 10/26/2024 Sex and Gender Information Value Date Recorded Sex Assigned at Male 12/27/2022 4:29 PM EDT Legal Sex Male 4:07 PM EDT Gender Identity Male 12/27/2022 4:29 PM EDT Sexual Orientation Don't know 12/27/2022 4: 29 PM EDT Last Filed Vital Signs Vital Sign Reading Time Taken Comments Blood Pressure 126/82 01/31/2025 1:09 PM EDT Pulse 64 01/31/2025 1:09 PM EDT Temperature 36.6 C (97.8 F) 11/02/2024 1:38 PM EDT Respiratory Rate 16 01/31/2025 1:09 PM EDT Oxygen Saturation 97% 11/02/2024 1:38 PM EDT Inhaled Oxygen Concentration - - Weight 72.1 kg (159 lb) 01/31/2025 1:09 PM EDT Height 165.1 cm (5' 5 ) 01/31/2025 1:09 PM EDT Body Mass Index 26.46 01/31/2025 1:09 PM EDT Plan of Treatment Upcoming Encounters Date Type Department Care Team (Late st Contact Info) Description 06/06/2025 2:00 PM EDT Office Visit [facility] [address] [place] [address] Torie Dowling, ANP [address] [place] [address] Health Maintenance Due Date Last Done Comments CT Colonography 1969 FIT DNA/Cologuard 1969 FIT 1969 FOBT 1969 Sigmoidoscopy 1969 Disability Screening 1969 Hepatitis B Vaccines (2 of 3 - 19+ 3-dose series) 11/30/2023 11/02/2023 Influenza Vaccine (#1) 2025 04/30/2024, 2022 Depression Monitoring 05/05/2025 11/02/2024, 025 Alcohol/Substance Use Screening 08/03/2025 08/03/2024 SDOH Screening 10/26/2025 10/26/2024 Tobacco Screening 01/31/2026 01/31/2025 Colonoscopy 03/09/2026 Colorectal Cancer Screening 03/09/2026 Lipid Panel 02/04/2030 02/04/2025, 11/02/2024, 02/28/2023 DTaP/Tdap/Td Vaccines (2 - Td or Tdap) 04/29/2030 04/29/2020 RSV Patients and Patients Aged 60 years or older (1 - 1-dose 75+ series) 2044 HIV Screening Completed 02/28/2023 Hepatitis C Screening Completed 02/28/2023 Zoster Vaccines Completed 08/18/2023, 06/15/2023 COVID-19 Vaccine Completed 04/30/2024, , 12/17/2020, Additional history exists Pneumococcal Vaccine: 50+ Years Completed 11/02/2024 HIB Vaccines Aged Out No longer eligi [...] Procedure Name Priority Date/Time Associated Diagnosis Comments LIPID PANEL, STANDARD Routine 02/04/2025 1:22 PM EDT Elevated cholesterol HEPATITIS C ANTIBODY REFLEX Routine 02/28/2023 8:53 AM EDT HIV ANTIBODY/ANTIGEN ([place] DPH) Routine 02/28/2023 8:53 AM EDT from Last 3 Months or Most Recently Relevant to Health Maintenance Results * (ABNORMAL) Lipid Panel, Standard (02/04/2025 1:22 PM EDT) Triglycerides 122 <150 mg/dL [facility] Comment:Desirable Triglyceri de: less than 150 mg/dLBorderline High Triglyceride 150-199 mg/dLHigh Triglyceride: 200-499 mg/dLVery High Triglyceride: greater than or equal to 5OO mg/dL Cholesterol 222(H) <200 mg/dL [facility] Comment:Desirable Cholestero l: less than 200 mg/dLBorderline High Cholesterol: 200-239 mg/dLHigh Cholesterol: greater than 239 mg/dL LDL Cholesterol Calculated 143(H) <100 mg/dL [facility] Comment:Desirable LDL: less than 100 mg/dLNear Optimal/Above Optimal LDL: 110- 129 mg/dLBorderline High LDL: 130-159 mg/dLHigh LDL: 160-189 mg/dLVery High LDL: greater than or equal to 190 mg/dL HDL Cholesterol 55 >40 mg/dL [facility] Comment:Desirable HDL: great er than 40 mg/dL Note: This HDL assay may give artificially low results in patients with liver disease. Blood Venous blood specimen / Unknown 02/04/2025 1:22 PM EDT 02/04/2025 4:03 PM EDT Torie Dowling [facility] BLOOD ORDERABLES Final Resul t Performing Organization Address [facility] Co de Phone Number [facility] [address] [place] [phone] * Hepatitis C Antibody Reflex (02/28/2023 8:53 AM EDT) Hepatitis C Antibody Nonreactive Nonreactive [facility] Comment:Antibodies to HCV no t detected; does not exclude early acuteHCV infection. 02/28/2023 8:53 AM EDT 02/28/2023 11:26 AM EDT Torie Dowling [facility] BLOOD ORDERABLES Final Resul t Performing Organization Address [facility] Co de Phone Number [facility] [address] [place] [address] [phone] * HIV Ab/Ag (CARM[facility]OX) (02/28/2023 8:53 AM EDT) HIV AB/AG Nonreactive Nonreactive [facility] Comment:HIV-1 p24 Ag and/or HIV-1/HIV-2 Ab not detected.A test result that is nonreactive does not exclude thepossibility of exposure to or infection with HIV-1 and/orHIV-2. Nonreactive results in this assay for individualswith prior exposure to HIV-1 and/or HIV-2 may be due toantigen and antibody levels that are below the limit ofdetection of this assay.The [employer] HIV Ag/Ab Combo assay result andsupplemental assay results should be interpreted inconjunction with the patient's clinical presentation,history and other laboratory results. If the results areinconsistent with clinical evidence, additional testing issuggested to confirm the result. 02/28/2023 8:53 AM EDT 02/28/2023 11:26 AM EDT On license of [facility] LAB BLOOD ORDERABLES Final Resul t [facility] [address] [place] [phone] from Last 3 Months or Most Recently Relevant to Health Maintenance [place] [address] [place] [address] C3 HSN FULL Care Teams Casting Operator Relationship Specialty Start Date End Date Torie Dowling ANP [address] [place] [phone] PCP - General Family Medicine 03/15/23
--- OUTSIDE RECORDS SUMMARY | 2025-05-29 21:00 | XMS_ITS | Clinical Summary ---
Author Organization [facility] Address [address] [place] [phone] Phone Care Team Providers Care Automation Clerk Name Role Phone Pcp, Unknown Primary Care [...] 2019 ZOSTER VACCINES (1 of 2) 2019 INFLUENZA VACCINE (#1) 2025 COVID-19 VACCINE (3 - 2024-2 6 season) 2025 12/17/2020, 11/27/2020 Adult Td,Tdap Booster 04/29/2030 04/29/2020 RSV VACCINE (1 - 1-dose 75+ series) 2044 HEPATITIS A VACCINES Aged Out No long [...] topic Medical Devices Not on file Insurance [place] [address] INSURANCE Care Teams Automation Clerk Relationship Specialty Start Date End Date Pcp, Unknown PCP - General 04/03/21 Additional Source Comments The information contained in this document represents components of the legal health record. It is not the complete legal health record.[facility]
--- OUTSIDE RECORDS SUMMARY | 2025-05-29 21:00 | XMS_ITS | Encounter Summary ---
Author Organization [employer] Address [address] [facility] [facility] 7t [place] [address] Care Team Providers Care Ice Puller Name Role Phone Torie Dowling Primary Care Provider [phone] Reason for Visit * Reason Onset Date Comments Error 12/01/2023 Encounter Details Date Type Department Care Team ([facility] st Contact Info) Description 12/01/2023 Telephone [facility] [address] [place], [place] [phone] Torie Dowling ANP [address] [place], [place] [phone] Error Social History Tobacco Use Types Packs/Day [...] t he electric, gas, oil or water [employer] threatened to shut off services in your [...] Description 06/06/2025 2:00 PM EDT Office Visit [facility] [address] [place] [phone] Torie Dowling ANP [address] [place] [address] documented as of this encounter Visit Diagnoses Not on filedocumented in this encounter Additional Health Concerns Assessment Noted Time PHQ-9 Depression Total Score: 5 02/26/20 23 1:35 PM EDT documented as of this encounter Care Teams Ice Puller Relationship Specialty Start Date End Date Torie Dowling ANP [address] [place] [phone] PCP - General Family Medicine 03/15/23 documented as of this encounter
--- OUTSIDE RECORDS SUMMARY | 2025-05-29 21:00 | XMS_ITS | Encounter Summary ---
Author Organization [employer] Address [address] [facility] 7t [place] [address] Care Team Providers Care Metal Punch Press Operator Name Role Phone Torie Dowling Primary Care Provider [phone] Reason for Visit * Reason Comments Med Refill Encounter Details Date Type Department Care Team ([facility] st Contact Info) Description 04/22/2025 Refill [facility] [address] [place], [place] [phone] Torie Dowling ANP [address] [place], [place] [phone] Benign essential HTN Social History Tobacco Use Types Packs/Day Years [...] Description 06/06/2025 2:00 PM EDT Office Visit [facility] [address] [place] [address] Torie Dowling ANP [address] [place] [address] documented as of this encounter Visit Diagnoses Diagnosis Benign essential HTN documented in this encounter Additional Health Concerns Assessment Noted Time PHQ-9 Depression Total Score: 10 025 2:17 PM EDT documented as of this encounter Care Teams Metal Punch Press Operator Relationship Specialty Start Date End Date Torie Dowling ANP [address] [place] [phone] PCP - General Family Medicine 03/15/23 documented as of this encounter
--- OUTSIDE RECORDS SUMMARY | 2025-05-29 21:00 | XMS_ITS | Encounter Summary ---
Author Organization [facility] Address [address] [place] [address] [place] [phone] Phone Care Team Providers Care Vp Talent Management Name Role Phone Pcp, Unknown Primary Care Provider Unavailabl e Encounter Details Date Type Department Care Team (Late st Contact Info) Description 04/03/2021 Procedure Pass [facility], Ct Scan - [facility] [address] [place] [address] Social History Tobacco Use Types Packs/Day Years [...] 5:52 PM EDT Sophie Smith RN * [place] Suicide Severity Rating Scale (Screener/Recent Self-Report) Question [...] on filedocumented in this encounter Care Teams Vp Talent Management Relationship Specialty Start Date End Date Pcp, Unknown PCP - General 04/03/21 documented as of this encounter Additional Source Comments The information contained in this document represents components of the legal health record. It is not the complete legal health record.[facility]
--- OUTSIDE RECORDS SUMMARY | 2025-05-29 21:00 | XMS_ITS | Encounter Summary ---
Author Organization [employer] Address [address] [facility] 7t [place] [address] Care Team Providers Care Embossing Machine Tender Name Role Phone Torie Dowling Primary Care Provider [phone] Reason for Visit * Reason Comments Pre-visit Planning SDOH screening was c ompleted on 10/26/2024 Encounter Details Date Type Department Care Team ([facility] st Contact Info) Description 05/29/2025 Patient Outreach [facility] [address] [place] [address] Torie Dowling ANP [address] [place] [address] Pre-visit Planning (SDOH screening was completed on 10/26/2024) Social History Tobacco Use Types Packs/Day Years [...] the past 12 months, has t he [employer], gas, oil or water company threatened to [...] PM EDT documented as of this encounter Progress Notes * Virginia Bailey - 05/29/2025 2:06 PM EDT GLENN Almanza placed successful outbound call to patient for pre-visit planning. Patient name and confirmed. Patient confirms appt date and time, and has transportation arrangements. Biggest concern for appointment at this time is no concerns for now. Patient advised to bring to appointment a photo id and insurance card. Appropriate screenings completed in anticipation of appointment. documented in this encounter Plan of Treatment Upcoming Encounters Date Type Department Care Team (Late st Contact Info) Description 06/06/2025 2:00 PM EDT Office Visit [facility] [address] [place] [address] Torie Dowling ANP [address] [place] [address] documented as of this encounter Visit Diagnoses Not on filedocumented in this encounter Additional Health Concerns Assessment Noted Time PHQ-9 Depression Total Score: 10 11/02/ 025 2:17 PM EDT documented as of this encounter Care Teams Embossing Machine Tender Relationship Specialty Start Date End Date Torie Dowling ANP [address] [place] [address] PCP - General Family Medicine 03/15/23 documented as of this encounter
--- OUTSIDE RECORDS SUMMARY | 2025-05-29 21:00 | XMS_ITS | Encounter Summary ---
Author Organization [facility] Address [address] [place] [address] [place] [phone] Phone Care Team Providers Care Tubing Machine Tender Name Role Phone Pcp, Unknown Primary Care Provider Unavailabl e Encounter Details Date Type Department Care Team (Late st Contact Info) Description 04/03/2021 Procedure Pass [facility], Ct Scan - [facility] [address] [place] [address] Social History Tobacco Use Types Packs/Day Years [...] 5:52 PM EDT Sophie Smith RN * [place] Suicide Severity Rating Scale (Screener/Recent Self-Report) Question [...] on filedocumented in this encounter Care Teams Tubing Machine Tender Relationship Specialty Start Date End Date Pcp, Unknown PCP - General 04/03/21 documented as of this encounter Additional Source Comments The information contained in this document represents components of the legal health record. It is not the complete legal health record.[facility]
== END 2025-05-29 14:50 | disposition home or self-care (01) ==
LOC: HO.NEURO 14:49
PROVIDERS: PCP Nurse Practitioner Primary Care
DX: R20.0 Anesthesia of skin (principal); R20.2 Paresthesia of skin; M79.642 Pain in left hand; M79.641 Pain in right hand
CPT/HCPCS: 95886; 95911

== ENCOUNTER → 2025-05-29 14:54 | Outpatient (BNV) | payer MEDICAID, SELFPAY | PROVIDERS: PCP Nurse Practitioner Primary Care; Visit Provider Physical Medicine & Rehabilitation | DX: M79.641 Pain in right hand (principal); M79.642 Pain in left hand; R20.2 Paresthesia of skin | CPT/HCPCS: 95886; 95911 ==

== ENCOUNTER 2025-06-11 14:44 | Outpatient (AMB) | payer MEDICAID, SELFPAY ==
--- OUTSIDE RECORDS SUMMARY | 2025-06-06 13:00 | XMS_ITS | Encounter Summary ---
Author Organization [employer] Address [address] [facility] 7t [place] [address] Care Team Providers Care Distribution District Supervisor Name Role Phone Torie Dowling Primary Care Provider [phone] Reason for Visit * Reason Comments Follow-up Encounter Details Date Type Department Care Team ([facility] st Contact Info) Description 06/06/2025 2:00 PM EDT Office Visit [facility] [address] [place], [place] [phone] Torie Dowling ANP [address] [place], [place] [phone] Non-seasonal allergic rhinitis due to other allergic trigger (Primary Dx); Encounter for immunization; Night sweat; ROGER (obstructive sleep apnea); Routine screening for STI (sexually transmitted infection); Benign essential HTN; Elevated cholesterol Social History Tobacco Use Types Packs/Day Years [...] PM EDT documented as of this encounter Last Filed Vital Signs Vital Sign Reading Time Taken Comments Blood Pressure 102/80 06/06/2025 1:50 PM EDT Pulse 73 06/06/2025 1:50 PM EDT Temperature 36 C (96.8 F) 06/06/2025 1:50 PM EDT Respiratory Rate 11 06/06/2025 1:50 PM EDT Oxygen Saturation 97% 06/06/2025 1:50 PM EDT Inhaled Oxygen Concentration - - Weight 73 kg (161 lb) 06/06/2025 1:50 PM EDT Height 165.1 cm (5' 5 ) 06/06/2025 1:50 PM EDT Body Mass Index 26.79 06/06/2025 1:50 PM EDT documented in this encounter Plan of Treatment Scheduled Orders Name Type Priority Associated Diagnoses Orde r Schedule TSH W/Reflex to FT4 Lab Routine Night sweat Expected: 06/06/2025 (Approximate), Expires: 06/06/2026 CBC auto differential Lab Routine Night sweat Expected: 06/06/2025 (Approximate), Expires: 06/06/2026 T-SPOT .TB Lab Routine Night sweat Expected: 06/06/2025 (Approximate), Expires: 06/06/2026 HIV-1/2 Antigen and Antibodies, Fourth Generation, with Reflexes Lab Routine Routine screening for STI (sexually transmitted infection) Expected: 06/06/2025 (Approximate), Expires: 06/06/2026 Lipid Panel, Standard Lab Routine Elevated cholesterol Expected: 06/06/2025 (Approximate), Expires: 06/06/2026 Comprehensive Metabolic Panel Lab Routine Benign essential HTN Expected: 06/06/2025 (Approximate), Expires: 06/06/2026 documented as of this encounter Visit Diagnoses Diagnosis Non-seasonal allergic rhinitis due to other allergic trigger- Primary Encounter for immunization Night sweat Generalized hyperhidrosis ROGER (obstructive sleep apnea) Obstructive sleep apnea (adult) (pediatric) Routine screening for STI (sexually transmitted infection) Screening examination for venereal disease Benign essential HTN Elevated cholesterol Pure hypercholesterolemia documented in this encounter Additional Health Concerns Assessment Noted Time PHQ-9 Depression Total Score: 10 11/02/ 025 2:17 PM EDT documented as of this encounter Care Teams Distribution District Supervisor Relationship Specialty Start Date End Date Torie Dowling ANP [address] [place] [phone] PCP - General Family Medicine 03/15/23 documented as of this encounter
--- NOTE | 2025-06-11 15:23 | A.OFFVIS_ITS ---
Intake Visit Reasons: OV-EMG review Intake Note: Trip is a 54 year old right hand dominant male who presents today for a follow up visit of his Left Hand Numbness & Tingling and EMG Review. At today's visit he states that his left pinky finger is starting to show signs of trigger finger. Central Sterile Supply Technician Required: Yes Central Sterile Supply Technician Services: Central Sterile Supply Technician Present Central Sterile Supply Technician Name: Delores [phone] Allergies No Known Allergies (No Known Allergies*) Allergy (Verified 03/25/25 13:31) HPI HPI OV-EMG review: Details: Trip is a 54 year old right hand dominant male who presents today for a follow up visit of his Left Hand Numbness & Tingling and EMG Review. At today's visit he states that his left pinky finger is starting to show signs of trigger finger. Patient states his symptoms have remained consistent from previous evaluation, in that they are intermittent, not necessarily daily, worse at night. COUNTS INCLUDE 234 BEDS AT [facility] Social History (System 01/31/24 @ 09:56 by Nory Herbert) Current occupational status: employed Current occupation: rt hand[place] Review of Systems Const All systems reviewed & are unremarkable except as noted in HPI and below Physical Exam Const General: no acute distress and alert Orientation/consciousness: patient oriented x3 Neuro General: patient oriented x3 Extrem Other: Evaluation of bilateral Upper Extremity: The patient is alert, oriented, and in no acute distress Neuro: Median, Ulnar, Radial nerves motor and sensory intact and sensation is normal to the tips of all digits today in clinic No thenar or intrinsic wasting He reports occasionally getting intermittent numbness in the median nerve distribution. He denies ever having any numbness in the small finger. Vascular: Cap refill brisk ROM: Patient is able to flex and extend all digits of bilateral hands fully, but reports some slight discomfort when doing so in all joints of bilateral fingers Psych Appearance: grossly normal Affect: normal affect Attitude: cooperative Results Reviewed Results Reviewed: IMPRESSION: 1. This is a normal study. 2. There is no electrodiagnostic evidence for median neuropathy, ulnar neuropathy, brachial plexopathy, or cervical radiculopathy. Clinical comment: No change since 08/17/2024. Thank you for your kind referral. Genesis Sue MD, FANG Assessment & Plan Assessment & Plan (1) Bilateral hand pain: Code(s): M79.641 - Pain in right hand; M79.642 - Pain in left hand Category: Medical (2) Numbness and tingling in both hands: Code(s): R20.0 - Anesthesia of skin; R20.2 - Paresthesia of skin Category: Medical Plan 1. Numbness and tingling bilateral hands with the EMG negative Patient is educated this condition Patient is educated about the typical recovery course At this time, patient is informed that there is no acute surgical intervention indicated with a negative EMG for hand numbness into 1 Patient is advised that he should potentially follow-up with his primary care provider for other etiologies of hand numbness and tingling, including but not limited to peripheral neuropathy If patient continues to experience numbness and tingling in 6 months, he can call us for repeat EMG Patient understands this and is amenable to this plan Follow-up as needed with any acute concerns Coding Level of Care Code Est Pt Level 3 (42095) Diagnoses Bilateral hand pain M79.641; M79.642 Numbness and tingling in both hands R20.0; R20.2
--- OUTSIDE RECORDS SUMMARY | 2025-06-11 17:49 | XMS_ITS | Clinical Summary ---
Author Organization [employer] Address [address] [facility] 7t [place] [address] Care Team Providers Care Naval [employer] Warfare Medic Name Role Phone Torie Dowling Primary Care Provider [phone] Allergies No known active allergies Medications * [...] daily. 4 Active olmesartan (BENIcar) 20 MG tabletIndications :Benign essential HTN TAKE 1 TABLET BY MOUTH EVERY DAY 90 tablet 1 5 Active Diclofenac Sodium (Voltaren) 1 % gelIndications:Ch ronic pain of left knee,Chronic elbow pain, left,Chronic pain of left ankle Apply up to 4x/d to affected joint(s) for pain/swelling 100 g 2 5 Active atorvastatin (Lipitor) 10 MG tabletIndications :Elevated cholesterol Take 1 tablet (10 mg) by mouth at bedtime. 30 tablet 11 5 02/12/20 26 Active fluticasone (Flonase) 50 MCG/ACT nasal sprayIndications: Non-seasonal allergic rhinitis due to other allergic trigger 1-2 sprays per nostril as needed once daily for nasal congestion/al lergies. Shake gently. Before first use, prime pump. After use, clean tip and replace cap. 48 g 5 Active Active Problems Problem Noted Date Diagnosed [...] On-site non-integrated services . Provided number for HC for sooner and same-day appointments. Referral for OP individual therapy will be placed. clinician will see patient for a follow-up. 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 Encounters Date Type Department Care Team Description 06/06/2025 2:00 PM EDT Office Visit [facility] [address] [place] [phone] Torie Dowling ANP Non-seasonal allergic rhinitis due to other allergic trigger (Primary Dx); Encounter for immunization; Night sweat; ROGER (obstructive sleep apnea); Routine screening for STI (sexually transmitted infection); Benign essential HTN; Elevated cholesterol 06/06/2025 Travel 06/04/2025 Telephone [facility] [address] [place] [phone] Torie Dowling ANP candelaria prep 05/29/2025 Patient Outreach [facility] [address] [place] [address] Torie Dowling ANP Pre-visit Planning (SDOH screening was completed on 10/26/2024) 04/22/2025 Refill [facility] [address] [place] [address] Torie Dowling ANP Benign essential HTN 04/03/2025 Telephone [facility] [address] [place] [address] Torie Dowling ANP May recall from Last 3 Months Immunizations Immunization Administration Dates Next Due Hep B, adult 11/02/2023 Influenza Injectable Quadriv alant Preservative Free IIV4 MDCK 06/15/2023 Influenza, seasonal, injectable, preservative fr ee 06/06/2025,04/30/2024 Pfizer Covid-19 Vaccine 12+ 04/30/2024 Pneumococcal Conjugate [...] Mass Index 26.79 06/06/2025 1:50 PM EDT Plan of Treatment Health Maintenance Due Date Last Done Comments CT Colonography 1969 FIT DNA/Cologuard 1969 FIT 1969 FOBT 1969 Sigmoidoscopy 1969 Disability Screening 1969 Hepatitis B Vaccines (2 of 3 - 19+ 3-dose series) 11/30/2023 11/02/2023 Depression Monitoring 05/05/2025 11/02/2024, 025 Alcohol/Substance Use Screening 08/03/2025 08/03/2024 SDOH Screening 10/26/2025 10/26/2024 Colonoscopy 03/09/2026 Colorectal Cancer Screening 03/09/2026 Tobacco Screening 06/06/2026 06/06/2025 Lipid Panel 02/04/2030 02/04/2025, 11/0 02/2024, 02/28/2023 DTaP/Tdap/Td Vaccines (2 - Td or Tdap) 04/29/2030 04/29/2020 RSV Patients and Patients Aged 60 years or older (1 - 1-dose 75+ series) 2044 HIV Screening Completed 02/28/2023 Hepatitis C Screening Completed 02/28/2023 Zoster Vaccines Completed 08/18/2023, 06/15/2023 COVID-19 Vaccine Completed 04/30/2024, , 12/17/2020, Additional history exists Pneumococcal Vaccine: 50+ Years Completed 11/02/2024 Influenza Vaccine Completed 06/06/2025, , 06/15/2023 HIB Vaccines Aged Out No longer [...] 1:22 PM EDT) Triglycerides 122 <150 mg/dL [facility] Comment:Desirable Triglyceri de: less than 150 mg/dLBorderline High Triglyceride 150-199 mg/dLHigh Triglyceride: 200-499 mg/dLVery High Triglyceride: greater than or equal to 5OO mg/dL Cholesterol 222(H) <200 mg/dL [facility] Comment:Desirable Cholestero l: less than 200 mg/dLBorderline High Cholesterol: 200-239 mg/dLHigh Cholesterol: greater than 239 mg/dL LDL Cholesterol Calculated 143(H) <100 mg/dL [facility] Comment:Desirable LDL: less than 100 mg/dLNear Optimal/Above Optimal LDL: 110- 129 mg/dLBorderline High LDL: 130-159 mg/dLHigh LDL: 160-189 mg/dLVery High LDL: greater than or equal to 190 mg/dL HDL Cholesterol 55 >40 mg/dL [facility] Comment:Desirable HDL: great er than 40 mg/dL Note: This HDL assay may give artificially low results in patients with liver disease. Blood Venous blood specimen / Unknown 02/04/2025 1:22 PM EDT 02/04/2025 4:03 PM EDT us Torie Dowling ANP LAB BLOOD ORDERABLES Final Resul t [facility] [address] [place] [phone] * Hepatitis C Antibody Reflex (02/28/2023 8:53 AM EDT) Hepatitis C Antibody Nonreactive Nonreactive [facility] Comment:Antibodies to HCV no t detected; does not exclude early acuteHCV infection. 02/28/2023 8:53 AM EDT 02/28/2023 11:26 AM EDT us Torie Dowling ANP LAB BLOOD ORDERABLES Final Resul t Performing Organization Address [facility] Co de Phone Number [facility] [address] [place] [address] [phone] * HIV Ab/Ag (CARMEN BOX) (02/28/2023 8:53 AM EDT) HIV AB/AG Nonreactive Nonreactive [facility] Comment:HIV-1 p24 Ag and/or HIV-1/HIV-2 Ab not detected.A test result that is nonreactive does not exclude thepossibility of exposure to or infection with HIV-1 and/orHIV-2. Nonreactive results in this assay for individualswith prior exposure to HIV-1 and/or HIV-2 may be due toantigen and antibody levels that are below the limit ofdetection of this assay.The [employer] HIV Ag/Ab Combo assay result andsupplemental assay results should be interpreted inconjunction with the patient's clinical presentation,history and other laboratory results. If the results areinconsistent with clinical evidence, additional testing issuggested to confirm the result. 02/28/2023 8:53 AM EDT 02/28/2023 11:26 AM EDT us Torie Dowling ANP LAB BLOOD ORDERABLES Final Resul t Performing Organization Address [facility] Co de Phone Number [facility] [address] [place] [address] [phone] from Last 3 Months or Most Recently Relevant to Health Maintenance Insurance [facility] C3 Care Teams [employer] Medic Relationship Specialty Start Date End Date Torie Dowling ANP [address] [place], [place] [phone] PCP - General Family Medicine 03/15/23
--- OUTSIDE RECORDS SUMMARY | 2025-06-11 17:49 | XMS_ITS | Clinical Summary ---
Author Organization [facility] Address [address] [place] [address] Care Team Providers Care Panel Lay Up Worker Name Role Phone Unavailable Primary Care Provider [...]
--- OUTSIDE RECORDS SUMMARY | 2025-06-11 17:49 | XMS_ITS | Encounter Summary ---
Author Organization [employer] Address [address] [facility] 7t [place] [address] Care Team Providers Care Wallpaper Embosser Helper Name Role Phone Torie Dowling Primary Care Provider [phone] Reason for Visit * Reason Onset Date Comments Error 12/01/2023 Encounter Details Date Type Department Care Team ([facility] st Contact Info) Description 12/01/2023 Telephone [facility] [address] [place], [place] [phone] Torie Dowling ANP [address] [place], [place] [phone] Error Social History Tobacco Use Types Packs/Day [...] t he electric, gas, oil or water [employer] threatened to shut off services in your [...] documented as of this encounter Care Teams Wallpaper Embosser Helper Relationship Specialty Start Date End Date Torie Dowling ANP [address] [place] [phone] PCP - General Family Medicine 03/15/23 documented as of this encounter
--- OUTSIDE RECORDS SUMMARY | 2025-06-11 17:49 | XMS_ITS | Encounter Summary ---
Author Organization [facility] Address [address] [place] [address] [place] [phone] Phone Care Team Providers Care Cigarette Examiner Name Role Phone Pcp, Unknown Primary Care Provider Unavailabl e Encounter Details Date Type Department Care Team (Late st Contact Info) Description 04/03/2021 Procedure Pass [facility], Ct Scan - [facility] [address] [place] [address] Social History Tobacco Use Types Packs/Day Years [...] 5:52 PM EDT Sophie Smith RN * [place] Suicide Severity Rating Scale (Screener/Recent Self-Report) Question Answer Date of Assessment Author 1. Wish to be (Past 1 Month) No 021 5:52 PM EDT Sophie Smith, RN 2. Non-Specific Active Suici adrian Thoughts (Past 1 Month) No 04/03/2021 5:52 PM EDT Dario Smith RN 6. Suicidal Behavior (Lifetime) No 5:52 PM EDT Sophie Simth RN documented as of this encounter Plan of Treatment Not on file documented as of this encounter Visit Diagnoses Not on filedocumented in this encounter Care Teams Cigarette Examiner Relationship Specialty Start Date End Date Pcp, Unknown PCP - General 04/03/21 documented as of this encounter Additional Source Comments The information contained in this document represents components of the legal health record. It is not the complete legal health record.[facility]
--- OUTSIDE RECORDS SUMMARY | 2025-06-11 17:49 | XMS_ITS | Encounter Summary ---
Author Organization [facility] Address [address] [facility] [address] [place] [address] Care Team Providers Care Business Unit Leader Name Role Phone Torie Dowling Primary Care Provider [phone] Encounter Details Date Type Department Care Team (Latest Contact Info) Description 06/06/2025 Travel Social History Tobacco Use Types Packs/Day Years [...] documented as of this encounter Care Teams Business Unit Leader Relationship Specialty Start Date End Date Torie Dowling ANP [address] [place] [phone] PCP - General Family Medicine 03/15/23 documented as of this encounter
--- OUTSIDE RECORDS SUMMARY | 2025-06-11 17:49 | XMS_ITS | Clinical Summary ---
Author Organization [facility] Address [address] [facility] [address] [place] [phone] Phone Care Team Providers Care Pyrotechnician Name Role Phone Pcp, Unknown Primary Care [...] topic Medical Devices Not on file [place] [place] [address] INSURANCE Care Teams Pyrotechnician Relationship Specialty Start Date End Date Pcp, Unknown PCP - General 04/03/21 Additional Source Comments The information contained in this document represents components of the legal health record. It is not the complete legal health record.[facility]
--- OUTSIDE RECORDS SUMMARY | 2025-06-11 17:49 | XMS_ITS | Encounter Summary ---
Author Organization [facility] Address [address] [place] [address] [place] [phone] Phone Care Team Providers Care Slip Cover Estimator Name Role Phone Pcp, Unknown Primary Care Provider Unavailabl e Encounter Details Date Type Department Care Team (Late st Contact Info) Description 04/03/2021 Procedure Pass [facility], Ct Scan - [facility] [address] [place] [address] Social History Tobacco Use Types Packs/Day Years [...] 5:52 PM EDT Sophie Smith RN * [place] Suicide Severity Rating Scale (Screener/Recent Self-Report) Question [...] on filedocumented in this encounter Care Teams Slip Cover Estimator Relationship Specialty Start Date End Date Pcp, Unknown PCP - General 04/03/21 documented as of this encounter Additional Source Comments The information contained in this document represents components of the legal health record. It is not the complete legal health record.[facility]
--- OUTSIDE RECORDS SUMMARY | 2025-06-11 17:49 | XMS_ITS | Encounter Summary ---
Author Organization [employer] Address [address] [facility] 7t [place] [address] Care Team Providers Care Soaking Room Operator Name Role Phone Torie Dowling Primary Care Provider [phone] Reason for Visit * Reason Comments Med Refill Encounter Details Date Type Department Care Team ([facility] st Contact Info) Description 04/22/2025 Refill [facility] [address] [place], [place] [phone] Torie Dowling ANP [address] [place], [place] [phone] Benign essential HTN Social History Tobacco Use [...] documented as of this encounter Care Teams Soaking Room Operator Relationship Specialty Start Date End Date Torie Dowling ANP [address] [place] [phone] PCP - General Family Medicine 03/15/23 documented as of this encounter
--- OUTSIDE RECORDS SUMMARY | 2025-06-11 17:49 | XMS_ITS | Encounter Summary ---
Author Organization [facility] Address [address] [place] [address] [place] [phone] Phone Care Team Providers Care Tree Farmer Name Role Phone Pcp, Unknown Primary Care Provider Unavailabl e Encounter Details Date Type Department Care Team (Late st Contact Info) Description 04/03/2021 Procedure Pass [facility], Ct Scan - [facility] [address] [place] [address] Social History Tobacco Use Types Packs/Day Years [...] 5:52 PM EDT Sophie Smith RN * [place] Suicide Severity Rating Scale (Screener/Recent Self-Report) Question [...] on filedocumented in this encounter Care Teams Tree Farmer Relationship Specialty Start Date End Date Pcp, Unknown PCP - General 04/03/21 documented as of this encounter Additional Source Comments The information contained in this document represents components of the legal health record. It is not the complete legal health record.[facility]
--- OUTSIDE RECORDS SUMMARY | 2025-06-11 17:49 | XMS_ITS | Encounter Summary ---
Author Organization [facility] Address [address] [place] [address] [place] [phone] Phone Care Team Providers Care Bobbin Collector Name Role Phone Pcp, Unknown Primary Care Provider Unavailabl e Encounter Details Date Type Department Care Team (Late st Contact Info) Description 04/03/2021 Procedure Pass [facility], Ct Scan - [facility] [address] [place] [address] Social History Tobacco Use Types Packs/Day Years [...] 5:52 PM EDT Sophie Smith RN * [place] Suicide Severity Rating Scale (Screener/Recent Self-Report) Question [...] on filedocumented in this encounter Care Teams Bobbin Collector Relationship Specialty Start Date End Date Pcp, Unknown PCP - General 04/03/21 documented as of this encounter Additional Source Comments The information contained in this document represents components of the legal health record. It is not the complete legal health record.[facility]
--- OUTSIDE RECORDS SUMMARY | 2025-06-11 17:49 | XMS_ITS | Encounter Summary ---
Author Organization [facility] Address [address] [place] [address] [place] [phone] Phone Care Team Providers Care Signal System Testing Maintainer Name Role Phone Pcp, Unknown Primary Care Provider Unavailabl e Encounter Details Date Type Department Care Team (Late st Contact Info) Description 04/03/2021 Procedure Pass [facility], Ct Scan - [facility] [address] [place] [address] Social History Tobacco Use Types Packs/Day Years [...] 5:52 PM EDT Sophie Smith RN * [place] Suicide Severity Rating Scale (Screener/Recent Self-Report) Question [...] on filedocumented in this encounter Care Teams Signal System Testing Maintainer Relationship Specialty Start Date End Date Pcp, Unknown PCP - General 04/03/21 documented as of this encounter Additional Source Comments The information contained in this document represents components of the legal health record. It is not the complete legal health record.[facility]
--- OUTSIDE RECORDS SUMMARY | 2025-06-11 17:49 | XMS_ITS | Encounter Summary ---
Author Organization [employer] Address [address] [place] [address] 7[address] [place] [address] Care Team Providers Care Hotel Or Motel Room Service Supervisor Name Role Phone Xena Troy MD Primary Care Pro vider Xena Troy MD Primary Care Pro vider Torie Dowling Primary Care Provider [phone] Reason for Visit * Reason Onset Date Comments New Patient Appt 12/27/2022 Encounter Details Date Type Department Care Team ([facility] st Contact Info) Description 12/27/2022 Telephone [facility] [address] [place] [phone] Xena Troy MD [address] [place], [place] [phone] New Patient Appt Social History Tobacco Use [...] PAR Rocio Jarrell called pt to Offer SECONDARY CONNECTOR ARMATURE appt. Pt demographics and insurance information were verified. Pt reports previous care at Pt reports no medical conditions. Pt is not taking any medication at this time. Pt given SECONDARY CONNECTOR ARMATURE appt with on 02/09/[address] Xena Valadez @ 9:15 am.Pt will be sent appt reminder card and medical release form and agrees to complete and to return tomedical records prior to SECONDARY CONNECTOR ARMATURE appt. documented in this encounter Plan of Treatment Not on file documented as of this encounter Visit Diagnoses Not on filedocumented in this encounter Care Teams Hotel Or Motel Room Service Supervisor Relationship Specialty Start Date End Date Xena Troy MD [address] [place] [address] PCP - General Internal Medicine 12/27/22 01/05/23 Xena Troy MD [address] [place] [phone] PCP - General Internal Medicine 02/18/23 03/14/23 Torie Dowling ANP [address] [place] [phone] PCP - General Family Medicine 03/15/23 documented as of this encounter
== END 2025-06-11 15:52 | disposition home or self-care (01) ==
LOC: HO.HOS 14:45
PROVIDERS: PCP Nurse Practitioner Primary Care
DX: M79.641 Pain in right hand (principal); M79.642 Pain in left hand; R20.0 Anesthesia of skin; R20.2 Paresthesia of skin
CPT/HCPCS: 99213

== ENCOUNTER → 2025-06-11 14:44 | Outpatient (BNVA) | payer MEDICAID, SELFPAY | PROVIDERS: PCP Nurse Practitioner Primary Care | DX: M79.641 Pain in right hand (principal); M79.642 Pain in left hand; R20.0 Anesthesia of skin; R20.2 Paresthesia of skin | CPT/HCPCS: 99212 ==

== ENCOUNTER 2025-06-24 08:09 | Outpatient (REF) | payer MEDICAID, SELFPAY ==
[2025-06-24 12:39] LABS: MANUAL DIFF FLAG NO
[2025-06-24 12:41] LABS: Hematocrit 47.7 % (42.0-52.0); Hemoglobin 15.4 g/dl (14.0-18.0); Imm Gran Abs Auto 0.04 X10*3/uL (0.00-0.03); Imm Gran Pct Auto 0.7 % (0.0-0.4); Lymphocytes Absolute Auto 1.7 X10*3/uL (1.2-4.9); Mean Corpuscular HGB Conc 32.3 g/dl (31.0-36.0); Mean Corpuscular Hemoglobin 31.0 pg (27.0-33.0); Mean Corpuscular Volume 96.0 fL (80.0-98.0); NRBC Abs Auto 0.000 X10*3/uL (0.0-0.012); NRBC Pct Auto 0.0 /100WBC (0.0-0.2); Platelet Count 296 X10*3/uL (160-400); Red Blood Count 4.97 X10*6/uL (4.60-5.80); White Blood Count 5.4 X10*3/uL (4.8-10.8)
[2025-06-24 13:12] LABS: Alanine Aminotransferase 29 U/L (0-40); Albumin Level 4.6 g/dL (3.5-5.0); Alkaline Phosphatase 70 U/L (39-117); Anion Gap 10 (12-20); Aspartate Amino Transferase 38 U/L (5-37); Blood Urea Nitrogen 11 mg/dL (9-16); Calcium 9.6 mg/dL (8.4-10.2); Carbon Dioxide 31 mmol/L (22-29); Chloride 103 mmol/L (96-108); Cholesterol 199 mg/dL (<200); Estimated Glomerular Filt Rate > 60; HDL Cholesterol 64 mg/dL (>40); Potassium 4.3 mmol/L (3.3-5.1); Sodium 140 mmol/L (135-145); Total Protein 7.3 g/dL (6.5-8.0); Triglycerides 122 mg/dL (<150)
[2025-06-25 07:51] LABS: HIV Num 1 0.06 S/CO (0.00-0.99)
[2025-06-27 00:43] LABS: TS Negative Control Passed; TS Panel A 0; TS Panel B 0; TS Positive Control Passed; TSpotTB Negative (Negative)
== END 2025-06-24 08:10 | disposition home or self-care (01) ==
LOC: HO.HHCL 08:09
PROVIDERS: PCP Nurse Practitioner Primary Care; Visit Provider Nurse Practitioner Primary Care
DX: Z11.4 Encounter for screening for human immunodeficiency virus [HIV] (principal); Z11.1 Encounter for screening for respiratory tuberculosis; Z11.3 Encounter for screening for infections with a predominantly sexual mode of transmission; E78.00 Pure hypercholesterolemia, unspecified; I10 Essential (primary) hypertension; R61 Generalized hyperhidrosis
CPT/HCPCS: 36415; 80053; 80061; 84443; 85025; 86481; 87389